=== PATIENT | female | born 1990 | race Caucasian/White ===

== ENCOUNTER 2016-05-15 17:49 | Emergency (ER) | payer OTHER ==
--- NOTE | 2016-05-15 22:39 | ED NURSING NOTES ---
Clinical Report - Nurses [facility] [place] [address] 05/15/2016 17:51 Patient: RAHEL PERRY TRIAGE Triage time 18:28. Acuity: LEVEL 3. Chief Complaint: LEFT LOWER EXTREMITY PAIN and SWELLING. Location of symptoms- (bruising). --18:34 Lia Guerra R.N. 18:28 05/15/16. BP: 109/74. HR: 82. RR: 18. O2 saturation: 99%. Temp: 99.4 F. Pain level now: 12/04. --18:34 Lia Guerra R.N. Weight: 65.7 kg stated. Height/Length: 66 inches Per Patient. BMI: 23.4. --18:33 Lia Guerra R.N. Medications None. --18:30 Lia Guerra R.N. Allergies No Known Drug Allergy. --18:30 Lia Guerra R.N. History Arrived by private vehicle. Primary physician (Josh Weller- Jason Arzate). ( left hip pain, now with low-grade fever). ( Pt. has history of hip dysplasia, has had 7 surgeries, the last 12/2015. For several weeks the left hip has been swollen, bruised (without injury) and becoming more painful. Surgeon advised she present to ED.). SURGERY HX: Left hip surgery. ( periacetabular osteotomy). SOCIAL HX: Smoker- current status unknown. Patient refuses to answer tobacco use questions (quit smoking 3 weeks ago.). No alcohol use or drug use. No infectious disease exposure. FALL RISK ASSESSMENT: Fall risk assessment completed. No fall risk identified. NUTRITIONAL RISK ASSESSMENT: The nutritional risk assessment revealed no deficiencies. FUNCTIONAL ASSESSMENT: Functional assessment: no impairments noted. LEARNING NEEDS ASSESSMENT: The learning needs assessment revealed no barriers. SKIN INTEGRITY ASSESSMENT: Skin integrity risk assessment completed. No skin integrity risk identified. --18:34 Lia Guerra R.N. PROBLEMS: Anemia. Hip dysplasia . --18:30 Lia Guerra R.N. ADDITIONAL SURGERIES: Left hip surgeries x 6 (periacetabular osteotomy). --18:31 Lia Guerra R.N. Interventions ID band on patient. To waiting room. --18:34 Lia Guerra R.N. PHYSICAL ASSESSMENT Ambulatory to room. --20:26 Katia Holder R.N. NURSING PROGRESS NOTES 20:15 05/15/16. The initial plan of care for this patient includes an assessment with efforts to address impairment of the musculoskeletal system. This plan of care was discussed with the patient. Reassurance given. Two patient identifiers checked. Call light placed in reach. Side rails up x 1. Bed placed in lowest position. Brakes of bed on. Patient ready for evaluation. --20:26 Katia Holder R.N. 21:32 05/15/16. GENERAL / NEURO / PSYCH: The patient reports pain that is located in the left hip. --21:32 Katia Holder R.N. 21:32 05/15/16. BP: 106/63. HR: 80. RR: 16. O2 saturation: 100%. Pain level now 8/10. --21:32 Katia Holder R.N. 21:44. Checked patient name and birthdate: patient confirmed. Blood samples drawn from the right antecubital space by tech per protocol ; labeled in presence of the patient and sent to lab: rainbow set. --21:54 McQuoid, Barbara, ER Tech1 21:55 05/15/2016 Percocet (Oxycodone-Acetaminophen) PO 5/325 mg Tablets 1 tab given. Allergies verified, confirmed 5 rights and sedative warning given to the patient. --21:55 Bren Lam R.N. DISPOSITION / DISCHARGE Departure time: 2244. --23:49 Tre Trinh R.N. 22:40 05/15/16. BP: 103/60. HR: 70. RR: 18. O2 saturation: 100%. Temp: 98.9 F. Pain level now: 3/10. Additional comments: Hip pain. --23:51 Tre Trinh R.N. 22:45. Condition at departure: improved. No learning barriers present. Discharge instructions provided and reviewed with the patient. Reviewed medication(s) (prescription given to pt). Reviewed referral to family practice for followup. Patient verbalized understanding. Written instructions provided in Slovak. The patient was discharged by the physician assistant director of public works. She was discharged home and accompanied by photoengraving sketch maker. She left the Emergency Department ambulatory and via private vehicle. Yarn Dumper driving. --23:53 Tre Trinh R.N. Locked/Released at 05/15/2016 23:55 by Tre Trinh R.N.
--- NOTE | 2016-05-15 22:39 | ED CLINICAL REPORT ---
Clinical Report - Physicians/Mid Levels [facility] [address] [place] [address] 05/15/2016 17:51 Patient: RAHEL PERRY Time Seen: 2029. Arrived- By private vehicle. Historian- patient. HISTORY OF PRESENT ILLNESS The patient also (hip pain). Chief Complaint: (HIP pain x 2 weeks). The injury occurred just prior to arrival. Occurred at home. (patient with chronic left hip pain, noninjury, increase ambulation recently, due to school. Reports out of her medications and additionally the last 2 weeks, has all with her surgeon within the next week. Patient denies any rash. Pain is consistent to what she has had in the past. Periacetabular ostomy, 7 surgeries, the last 12/2015). REVIEW OF SYSTEMS No headache or loss of vision. All systems otherwise negative, except as recorded above. PAST HISTORY Problems: Anemia. Hip dysplasia . Additional Surgeries: Hip Surgery. Left hip surgeries x 6 (periacetabular osteotomy). Medications: None. Allergies: No Known Drug Allergy. SOCIAL HISTORY No alcohol use or drug use. ADDITIONAL NOTES The nursing notes have been reviewed. PHYSICAL EXAM Vital Signs: 05/15/2016 18:28 BP: 109/74. HR: 82. RR: 18. O2 saturation: 99%. Temp: 99.4 F. Pain level now: 8/10. Appearance: No acute distress. Eyes: Pupils equal, round and reactive to light. EOM intact. ENT: No dental injury. CVS: Heart sounds normal. Pulses normal. Respiratory: Breath sounds normal. Chest nontender. No chest wall injury. Abdomen: No visible injury. Soft. Bowel sounds normal. No abdominal tenderness or rebound tenderness. Back: No tenderness. Skin: Skin intact. Skin warm. Extremities: Normal inspection. Pelvis stable. Left hip: mild tenderness located in the anterior and lateral aspect of the hip. (large incision from prior/ old, well healing, c/d/i). No abrasion, puncture wound or foreign body. No limitation in ROM. Left thigh. No erythema or swelling. Neuro: [place] Coma Scale: 15- eyes open spontaneously (4); best verbal response- oriented x 3 (5); best motor response- obeys commands (6). Oriented X 3. No motor deficit. No sensory deficit. LABS, X-RAYS, AND EKG Lt Hip X-ray: (IMPRESSION: 1. Chronic postsurgical changes of the left iliac wing and acetabulum 2. Mild left hip degenerative changes 3. Myositis ossificans Electronically Final signed by:Zane Robles MD 05/15/2016 11:06:22 PM). Laboratory Tests: CBC w Diff: (TOY: 05/15/2016 21:55) ( MsgRcvd 05/15/2016 22:40) Final results Test Result Flag Units (Reference) WHITE BLOOD COUNT 7.7 K/uL (4.5-11.5) RED BLOOD COUNT 4.14 M/uL (4.00-5.20) HEMOGLOBIN 9.7 L gm/dL (12.0-16.0) HEMATOCRIT 30.7 L % (36.0-46.0) MEAN CELL VOLUME 74 L fL (80-100) MEAN CORPUSCULAR HGB 23 L pg (26-34) MEAN CORPUSCULAR HGB CONC 32 g/dL (31-37) RED CELL DISTRIBUTION WIDTH 20.5 H % (11.6-14.8) PLATELET COUNT 250 K/uL (150-400) NEUTROPHIL % 49.3 L % (50-75) LYMPH % 39.5 % (25-40) MONO % 9.4 % (3-14) EOSINOPHIL % 1.4 % (0-4) BASOPHIL % 0.4 % (0-2) SED RATE WESTERGREN 25 H mm/hr (0-20) RBC MORPHOLOGY 1+ ANISOCYTOSIS~~1+ HYPOCHROMIA [id number]: (TOY: 05/15/2016 21:55) ( MsgRcvd 05/15/2016 22:35) Final results Test Result Flag Units (Reference) C-REACTIVE PROTEIN < 0.2 mg/dL (0.0-0.9) . PROGRESS AND PROCEDURES Course of Care: Patient here in the ear with chronic pain, no new symptoms, perhaps exacerbated by recent activity and movement. No fall. No rash overlying the area. Patient is stable. Patient/family counseled. Disposition: Discharged. Condition: good. CLINICAL IMPRESSION Chronic Hip Pain. INSTRUCTIONS You may walk and bear weight as tolerated. Prescription Medications: Hydrocodone/APAP 7.5mg / 325mg: take 1 orally every 6 hours as needed for pain. Dispense twenty (20). No refill. Follow-up: Follow up with your doctor in three days. (Electronically signed by Shira Martinez P.A.-C 05/16/2016 13:25)
--- NOTE | 2016-05-15 22:39 | ED NURSING NOTES ---
Clinical Report - Nurses [facility] [place] [address] 05/15/2016 17:51 Patient: RAHEL PERRY TRIAGE Triage time 18:28. Acuity: LEVEL 3. Chief Complaint: LEFT LOWER EXTREMITY PAIN and SWELLING. Location of symptoms- (bruising). --18:34 Lia Guerra R.N. 18:28 05/15/16. BP: 109/74. HR: 82. RR: 18. O2 saturation: 99%. Temp: 99.4 F. Pain level now: 12/04. --18:34 Lia Guerra R.N. Weight: 65.7 kg stated. Height/Length: 66 inches Per Patient. BMI: 23.4. --18:33 Lia Guerra R.N. Medications None. --18:30 Lia Guerra R.N. Allergies No Known Drug Allergy. --18:30 Lia Guerra R.N. History Arrived by private vehicle. Primary physician (Josh Weller- Jason Arzate). ( left hip pain, now with low-grade fever). ( Pt. has history of hip dysplasia, has had 7 surgeries, the last 12/2015. For several weeks the left hip has been swollen, bruised (without injury) and becoming more painful. Surgeon advised she present to ED.). SURGERY HX: Left hip surgery. ( periacetabular osteotomy). SOCIAL HX: Smoker- current status unknown. Patient refuses to answer tobacco use questions (quit smoking 3 weeks ago.). No alcohol use or drug use. No infectious disease exposure. FALL RISK ASSESSMENT: Fall risk assessment completed. No fall risk identified. NUTRITIONAL RISK ASSESSMENT: The nutritional risk assessment revealed no deficiencies. FUNCTIONAL ASSESSMENT: Functional assessment: no impairments noted. LEARNING NEEDS ASSESSMENT: The learning needs assessment revealed no barriers. SKIN INTEGRITY ASSESSMENT: Skin integrity risk assessment completed. No skin integrity risk identified. --18:34 Lia Guerra R.N. PROBLEMS: Anemia. Hip dysplasia . --18:30 Lia Guerra R.N. ADDITIONAL SURGERIES: Left hip surgeries x 6 (periacetabular osteotomy). --18:31 Lia Guerra R.N. Interventions ID band on patient. To waiting room. --18:34 Lia Guerra R.N. PHYSICAL ASSESSMENT Ambulatory to room. --20:26 Katia Holder R.N. NURSING PROGRESS NOTES 20:15 05/15/16. The initial plan of care for this patient includes an assessment with efforts to address impairment of the musculoskeletal system. This plan of care was discussed with the patient. Reassurance given. Two patient identifiers checked. Call light placed in reach. Side rails up x 1. Bed placed in lowest position. Brakes of bed on. Patient ready for evaluation. --20:26 Katia Holder R.N. 21:32 05/15/16. GENERAL / NEURO / PSYCH: The patient reports pain that is located in the left hip. --21:32 Katia Holder R.N. 21:32 05/15/16. BP: 106/63. HR: 80. RR: 16. O2 saturation: 100%. Pain level now 8/10. --21:32 Katia Holder R.N. 21:44. Checked patient name and birthdate: patient confirmed. Blood samples drawn from the right antecubital space by tech per protocol ; labeled in presence of the patient and sent to lab: rainbow set. --21:54 McQuoid, Barbara, ER Tech1 21:55 05/15/2016 Percocet (Oxycodone-Acetaminophen) PO 5/325 mg Tablets 1 tab given. Allergies verified, confirmed 5 rights and sedative warning given to the patient. --21:55 Bren Lam R.N. DISPOSITION / DISCHARGE Departure time: 2244. --23:49 Tre Trinh R.N. 22:40 05/15/16. BP: 103/60. HR: 70. RR: 18. O2 saturation: 100%. Temp: 98.9 F. Pain level now: 3/10. Additional comments: Hip pain. --23:51 Tre Trinh R.N. 22:45. Condition at departure: improved. No learning barriers present. Discharge instructions provided and reviewed with the patient. Reviewed medication(s) (prescription given to pt). Reviewed referral to family practice for followup. Patient verbalized understanding. Written instructions provided in Cymro. The patient was discharged by the physician assistant attorney general. She was discharged home and accompanied by equipment maint tech. She left the Emergency Department ambulatory and via private vehicle. Literacy Consultant driving. --23:53 Tre Trinh R.N. Locked/Released at 05/15/2016 23:55 by Tre Trinh R.N.
--- NOTE | 2016-05-15 22:39 | ED ORDER SUMMARY ---
..... Patient: RAHEL PERRY OrderSheet [facility] VisitID: [id number] [address] [place] [address] 25y, F Registration Date/Time: 05/15/2016 ORDER SHEET Weight: 65.7 kg (stated) Allergies: No Known Drug Allergy GENERAL ORDERS: Hip 2V Left w AP Pelvis Urgent (20:52 05/15/2016 EKoroleva P.A.-C) (Ack 20:55 LTapper) (21:11 MCampbell) CBC w Diff Urgent (20:52 05/15/2016 EKoroleva P.A.-C) (Ack 20:55 LTapper) (21:54 AMcQuoid ER Tech1) Sed Rate Urgent (20:52 05/15/2016 EKoroleva P.A.-C) (Ack 20:55 LTapper) (21:54 AMcQuoid ER Tech1) CRP Urgent (20:52 05/15/2016 EKoroleva P.A.-C) (Ack 20:55 LTapper) (21:54 AMcQuoid ER Tech1) MEDICATION ORDERS: Percocet PO 5/325 mg (HIGH ALERT MEDICATION, NOW) (21:46 05/15/2016 EKoroleva P.A.-C) (21:55 Chayo R.N.) IV FLUIDS: ORDER SHEET NOTES: [Electronically signed by Tre Trinh R.N. (23:55 05/15/2016)] [Electronically signed by Shira Martinez P.A.-C (13:25 05/16/2016)] [Electronically locked/signed by Tre Trinh R.N. (23:55 05/15/2016)]
--- NOTE | 2016-05-15 22:39 | ED ORDER SUMMARY ---
..... Patient: RAHEL PERRY OrderSheet [facility] VisitID: [id number] [address] [place] [address] 25y, F Registration Date/Time: 05/15/2016 ORDER SHEET Weight: 65.7 kg (stated) Allergies: No Known Drug Allergy GENERAL ORDERS: Hip 2V Left w AP Pelvis Urgent (20:52 05/15/2016 EKoroleva P.A.-C) (Ack 20:55 LTapper) (21:11 MCampbell) CBC w Diff Urgent (20:52 05/15/2016 EKoroleva P.A.-C) (Ack 20:55 LTapper) (21:54 AMcQuoid ER Tech1) Sed Rate Urgent (20:52 05/15/2016 EKoroleva P.A.-C) (Ack 20:55 LTapper) (21:54 AMcQuoid ER Tech1) CRP Urgent (20:52 05/15/2016 EKoroleva P.A.-C) (Ack 20:55 LTapper) (21:54 AMcQuoid ER Tech1) MEDICATION ORDERS: Percocet PO 5/325 mg (HIGH ALERT MEDICATION, NOW) (21:46 05/15/2016 EKoroleva P.A.-C) (21:55 Chayo R.N.) IV FLUIDS: ORDER SHEET NOTES: [Electronically signed by Tre Trinh R.N. (23:55 05/15/2016)] [Electronically signed by Shira Martinez P.A.-C (13:25 05/16/2016)] [Electronically locked/signed by Tre Trinh R.N. (23:55 05/15/2016)]
--- NOTE | 2016-05-15 22:39 | ED CLINICAL REPORT ---
Clinical Report - Physicians/Mid Levels [facility] [address] [place] [address] 05/15/2016 17:51 Patient: RAHEL PERRY Time Seen: 2029. Arrived- By private vehicle. Historian- patient. HISTORY OF PRESENT ILLNESS The patient also (hip pain). Chief Complaint: (HIP pain x 2 weeks). The injury occurred just prior to arrival. Occurred at home. (patient with chronic left hip pain, noninjury, increase ambulation recently, due to school. Reports out of her medications and additionally the last 2 weeks, has all with her surgeon within the next week. Patient denies any rash. Pain is consistent to what she has had in the past. Periacetabular ostomy, 7 surgeries, the last 12/2015). REVIEW OF SYSTEMS No headache or loss of vision. All systems otherwise negative, except as recorded above. PAST HISTORY Problems: Anemia. Hip dysplasia . Additional Surgeries: Hip Surgery. Left hip surgeries x 6 (periacetabular osteotomy). Medications: None. Allergies: No Known Drug Allergy. SOCIAL HISTORY No alcohol use or drug use. ADDITIONAL NOTES The nursing notes have been reviewed. PHYSICAL EXAM Vital Signs: 05/15/2016 18:28 BP: 109/74. HR: 82. RR: 18. O2 saturation: 99%. Temp: 99.4 F. Pain level now: 8/10. Appearance: No acute distress. Eyes: Pupils equal, round and reactive to light. EOM intact. ENT: No dental injury. CVS: Heart sounds normal. Pulses normal. Respiratory: Breath sounds normal. Chest nontender. No chest wall injury. Abdomen: No visible injury. Soft. Bowel sounds normal. No abdominal tenderness or rebound tenderness. Back: No tenderness. Skin: Skin intact. Skin warm. Extremities: Normal inspection. Pelvis stable. Left hip: mild tenderness located in the anterior and lateral aspect of the hip. (large incision from prior/ old, well healing, c/d/i). No abrasion, puncture wound or foreign body. No limitation in ROM. Left thigh. No erythema or swelling. Neuro: [place] Coma Scale: 15- eyes open spontaneously (4); best verbal response- oriented x 3 (5); best motor response- obeys commands (6). Oriented X 3. No motor deficit. No sensory deficit. LABS, X-RAYS, AND EKG Lt Hip X-ray: (IMPRESSION: 1. Chronic postsurgical changes of the left iliac wing and acetabulum 2. Mild left hip degenerative changes 3. Myositis ossificans Electronically Final signed by:Zane Robles MD 05/15/2016 11:06:22 PM). Laboratory Tests: CBC w Diff: (TOY: 05/15/2016 21:55) ( MsgRcvd 05/15/2016 22:40) Final results Test Result Flag Units (Reference) WHITE BLOOD COUNT 7.7 K/uL (4.5-11.5) RED BLOOD COUNT 4.14 M/uL (4.00-5.20) HEMOGLOBIN 9.7 L gm/dL (12.0-16.0) HEMATOCRIT 30.7 L % (36.0-46.0) MEAN CELL VOLUME 74 L fL (80-100) MEAN CORPUSCULAR HGB 23 L pg (26-34) MEAN CORPUSCULAR HGB CONC 32 g/dL (31-37) RED CELL DISTRIBUTION WIDTH 20.5 H % (11.6-14.8) PLATELET COUNT 250 K/uL (150-400) NEUTROPHIL % 49.3 L % (50-75) LYMPH % 39.5 % (25-40) MONO % 9.4 % (3-14) EOSINOPHIL % 1.4 % (0-4) BASOPHIL % 0.4 % (0-2) SED RATE WESTERGREN 25 H mm/hr (0-20) RBC MORPHOLOGY 1+ ANISOCYTOSIS~~1+ HYPOCHROMIA [id number]: (TOY: 05/15/2016 21:55) ( MsgRcvd 05/15/2016 22:35) Final results Test Result Flag Units (Reference) C-REACTIVE PROTEIN < 0.2 mg/dL (0.0-0.9) . PROGRESS AND PROCEDURES Course of Care: Patient here in the ear with chronic pain, no new symptoms, perhaps exacerbated by recent activity and movement. No fall. No rash overlying the area. Patient is stable. Patient/family counseled. Disposition: Discharged. Condition: good. CLINICAL IMPRESSION Chronic Hip Pain. INSTRUCTIONS You may walk and bear weight as tolerated. Prescription Medications: Hydrocodone/APAP 7.5mg / 325mg: take 1 orally every 6 hours as needed for pain. Dispense twenty (20). No refill. Follow-up: Follow up with your doctor in three days. (Electronically signed by Shira Martinez P.A.-C 05/16/2016 13:25)
--- NOTE | 2016-05-15 23:06 | DIAGNOSTIC IMAGING REPORT ---
PROCEDURE: XR HIP 2VW W W/O AP PELVIS-LT INDICATION: PAIN IN JOINT, initial encounter TECHNIQUE: AP view of the pelvis and hips with lateral view of the left hip. COMPARISON: None. FINDINGS: LEFT HIP: Mild degenerative changes. No fracture or dislocation. PELVIS: Healed iliac transverse osteotomy. Single screw projecting over the left acetabulum and joint space laterally. . Soft tissue calcification adjacent to the femoral neck and left iliac wing suggestive of myositis ossificans. IMPRESSION: 1. Chronic postsurgical changes of the left iliac wing and acetabulum 2. Mild left hip degenerative changes 3. Myositis ossificans
--- NOTE | 2016-05-16 13:26 | ED MED RECONCILIATION SUMMARY ---
Patient: RAHEL PERRY Medication Reconciliation Report [facility] VisitID: [id number] [address] [place] [address] 25y, F Registration Date/Time: 05/15/2016 Weight: 65.7 kg Height/Length: 66 in. BMI: 23.4 ALLERGIES: No Known Drug Allergy The patient's Home Medications are listed below: NONE. The source(s) of the original Home Medication information: Not obtained. The following Medications were given to the patient in the Emergency Department: Percocet [PO] PO 1 tab, administered: 05/15/2016 9:55:00 PM The following Medications were prescribed to the patient: Hydrocodone/APAP 7.5mg / 325mg: take 1 orally every 6 hours as needed for pain. Dispense twenty (20). No refill. -- Shira Martinez, PChandanaAAramC
--- NOTE | 2016-05-16 13:26 | ED DISCHARGE INSTRUCTIONS ---
Patient: RAHEL PERRY General Instructions [facility] VisitID: [id number] [place] [address] 25y, F Registration Date/Time: 05/15/2016 Chronic Hip Pain. INSTRUCTIONS You may walk and bear weight as tolerated. Prescription Medications: Hydrocodone/APAP 7.5mg / 325mg: take 1 orally every 6 hours as needed for pain. Dispense twenty (20). No refill. Follow-up: Follow up with your doctor in three days. ADDITIONAL INFORMATION Hydrocodone Bitartrate, Acetaminophen Oral tablet What is this medicine? ACETAMINOPHEN; HYDROCODONE (a set a FUNMILAYO carine fen; gamal droe KOE done) is a pain reliever. It is used to treat mild to moderate pain. How should I use this medicine? Take this medicine by mouth. Swallow it with a full glass of water. Follow the directions on the prescription label. If the medicine upsets your stomach, take the medicine with food or milk. Do not take more than you are told to take. Talk to your costume technician regarding the use of this medicine in children. This medicine is not approved for use in children. What side effects may I notice from receiving this medicine? Side effects that you should report to your doctor or health acute care nurse as soon as possible: allergic reactions like skin rash, itching or hives, swelling of the face, lips, or tongue breathing problems confusion feeling faint or lightheaded, falls stomach pain yellowing of the eyes or skin Side effects that usually do not require medical attention (report to your doctor or health acute care nurse if they continue or are bothersome): nausea, vomiting stomach upset What may interact with this medicine? alcohol antihistamines isoniazid medicines for depression, anxiety, or psychotic disturbances medicines for sleep muscle relaxants naltrexone narcotic medicines (opiates) for pain phenobarbital ritonavir tramadol What if I miss a dose? If you miss a dose, take it as soon as you can. If it is almost time for your next dose, take only that dose. Do not take double or extra doses. Where should I keep my medicine? Keep out of the reach of children. This medicine can be abused. Keep your medicine in a safe place to protect it from theft. Do not share this medicine with anyone. Selling or giving away this medicine is dangerous and against the law. Store at room temperature between 15 and 30 degrees C (59 and 86 degrees F). Protect from light. Keep container tightly closed. Throw away any unused medicine after the expiration date. Discard unused medicine and used packaging carefully. Pets and children can be harmed if they find used or lost packages. What should I tell my health care provider before I take this medicine? They need to know if you have any of these conditions: brain tumor Crohn's disease, inflammatory bowel disease, or ulcerative colitis drink more than 3 alcohol-containing drinks per day drug abuse or addiction head injury heart or circulation problems kidney disease or problems going to the bathroom liver disease lung disease, asthma, or breathing problems an unusual or allergic reaction to acetaminophen, hydrocodone, other opioid analgesics, other medicines, foods, dyes, or preservatives or trying to get breast-feeding What should I watch for while using this medicine? Tell your doctor or health acute care nurse if your pain does not go away, if it gets worse, or if you have new or a different type of pain. You may develop tolerance to the medicine. Tolerance means that you will need a higher dose of the medicine for pain relief. Tolerance is normal and is expected if you take the medicine for a long time. Do not suddenly stop taking your medicine because you may develop a severe reaction. Your body becomes used to the medicine. This does NOT mean you are addicted. Addiction is a behavior related to getting and using a drug for a non-medical reason. If you have pain, you have a medical reason to take pain medicine. Your doctor will tell you how much medicine to take. If your doctor wants you to stop the medicine, the dose will be slowly lowered over time to avoid any side effects. You may get drowsy or dizzy when you first start taking the medicine or change doses. Do not drive, use machinery, or do anything that may be dangerous until you know how the medicine affects you. Stand or sit up slowly. There are different types of narcotic medicines (opiates) for pain. If you take more than one type at the same time, you may have more side effects. Give your health care provider a list of all medicines you use. Your doctor will tell you how much medicine to take. Do not take more medicine than directed. Call emergency for help if you have problems breathing. The medicine will cause constipation. Try to have a bowel movement at least every 2 to 3 days. If you do not have a bowel movement for 3 days, call your doctor or health acute care nurse. Too much acetaminophen can be very dangerous. Do not take Tylenol (acetaminophen) or medicines that contain acetaminophen with this medicine. Many non-prescription medicines contain acetaminophen. Always read the labels carefully. You have been given the following additional information: Hydrocodone Bitartrate, Acetaminophen Oral tablet You may walk and bear weight as tolerated. (Electronically signed by Shira Martinez P.A.-C 05/16/2016 13:25)
--- NOTE | 2016-05-16 13:26 | ED MED RECONCILIATION SUMMARY ---
Patient: RAHEL PERRY Medication Reconciliation Report [facility] VisitID: [id number] [address] [place] [address] 25y, F Registration Date/Time: 05/15/2016 Weight: 65.7 kg Height/Length: 66 in. BMI: 23.4 ALLERGIES: No Known Drug Allergy The patient's Home Medications are listed below: NONE. The source(s) of the original Home Medication information: Not obtained. The following Medications were given to the patient in the Emergency Department: Percocet [PO] PO 1 tab, administered: 05/15/2016 9:55:00 PM The following Medications were prescribed to the patient: Hydrocodone/APAP 7.5mg / 325mg: take 1 orally every 6 hours as needed for pain. Dispense twenty (20). No refill. -- Shira Martinez, PChandanaAAramC
--- NOTE | 2016-05-16 13:26 | ED DISCHARGE INSTRUCTIONS ---
Patient: RAHEL PERRY General Instructions [facility] VisitID: [id number] [place] [address] 25y, F Registration Date/Time: 05/15/2016 Chronic Hip Pain. INSTRUCTIONS You may walk and bear weight as tolerated. Prescription Medications: Hydrocodone/APAP 7.5mg / 325mg: take 1 orally every 6 hours as needed for pain. Dispense twenty (20). No refill. Follow-up: Follow up with your doctor in three days. ADDITIONAL INFORMATION Hydrocodone Bitartrate, Acetaminophen Oral tablet What is this medicine? ACETAMINOPHEN; HYDROCODONE (a set a FUNMILAYO carine fen; gamal droe KOE done) is a pain reliever. It is used to treat mild to moderate pain. How should I use this medicine? Take this medicine by mouth. Swallow it with a full glass of water. Follow the directions on the prescription label. If the medicine upsets your stomach, take the medicine with food or milk. Do not take more than you are told to take. Talk to your embroidery machine operator regarding the use of this medicine in children. This medicine is not approved for use in children. What side effects may I notice from receiving this medicine? Side effects that you should report to your doctor or health care asst as soon as possible: allergic reactions like skin rash, itching or hives, swelling of the face, lips, or tongue breathing problems confusion feeling faint or lightheaded, falls stomach pain yellowing of the eyes or skin Side effects that usually do not require medical attention (report to your doctor or health care asst if they continue or are bothersome): nausea, vomiting stomach upset What may interact with this medicine? alcohol antihistamines isoniazid medicines for depression, anxiety, or psychotic disturbances medicines for sleep muscle relaxants naltrexone narcotic medicines (opiates) for pain phenobarbital ritonavir tramadol What if I miss a dose? If you miss a dose, take it as soon as you can. If it is almost time for your next dose, take only that dose. Do not take double or extra doses. Where should I keep my medicine? Keep out of the reach of children. This medicine can be abused. Keep your medicine in a safe place to protect it from theft. Do not share this medicine with anyone. Selling or giving away this medicine is dangerous and against the law. Store at room temperature between 15 and 30 degrees C (59 and 86 degrees F). Protect from light. Keep container tightly closed. Throw away any unused medicine after the expiration date. Discard unused medicine and used packaging carefully. Pets and children can be harmed if they find used or lost packages. What should I tell my health care provider before I take this medicine? They need to know if you have any of these conditions: brain tumor Crohn's disease, inflammatory bowel disease, or ulcerative colitis drink more than 3 alcohol-containing drinks per day drug abuse or addiction head injury heart or circulation problems kidney disease or problems going to the bathroom liver disease lung disease, asthma, or breathing problems an unusual or allergic reaction to acetaminophen, hydrocodone, other opioid analgesics, other medicines, foods, dyes, or preservatives or trying to get breast-feeding What should I watch for while using this medicine? Tell your doctor or health care asst if your pain does not go away, if it gets worse, or if you have new or a different type of pain. You may develop tolerance to the medicine. Tolerance means that you will need a higher dose of the medicine for pain relief. Tolerance is normal and is expected if you take the medicine for a long time. Do not suddenly stop taking your medicine because you may develop a severe reaction. Your body becomes used to the medicine. This does NOT mean you are addicted. Addiction is a behavior related to getting and using a drug for a non-medical reason. If you have pain, you have a medical reason to take pain medicine. Your doctor will tell you how much medicine to take. If your doctor wants you to stop the medicine, the dose will be slowly lowered over time to avoid any side effects. You may get drowsy or dizzy when you first start taking the medicine or change doses. Do not drive, use machinery, or do anything that may be dangerous until you know how the medicine affects you. Stand or sit up slowly. There are different types of narcotic medicines (opiates) for pain. If you take more than one type at the same time, you may have more side effects. Give your health care provider a list of all medicines you use. Your doctor will tell you how much medicine to take. Do not take more medicine than directed. Call emergency for help if you have problems breathing. The medicine will cause constipation. Try to have a bowel movement at least every 2 to 3 days. If you do not have a bowel movement for 3 days, call your doctor or health care asst. Too much acetaminophen can be very dangerous. Do not take Tylenol (acetaminophen) or medicines that contain acetaminophen with this medicine. Many non-prescription medicines contain acetaminophen. Always read the labels carefully. You have been given the following additional information: Hydrocodone Bitartrate, Acetaminophen Oral tablet You may walk and bear weight as tolerated. (Electronically signed by Shira Martinez P.A.-C 05/16/2016 13:25)
--- NOTE | 2016-05-16 13:26 | ED MAR SUMMARY ---
..... Medication Administration Record [facility] [address] [place] [address] Patient: RAHEL PERRY Visit ID: [id number] 25y, F Weight: 65.7 kg Height/Length: 66 in BMI: 23.4 ALLERGIES: No Known Drug Allergy Given 21:55 05/15/2016 Bren Lam RChandanaNChandana Medication Administered: PERCOCET [PO] (OXYCODONE-ACETAMINOPHEN), Dose: 1 tab 5/325 mg Tablets PO. Medication Ordered: Percocet PO 5/325 mg (HIGH ALERT MEDICATION, NOW).
--- NOTE | 2016-05-16 13:26 | ED MAR SUMMARY ---
..... Medication Administration Record [facility] [address] [place] [address] Patient: RAHEL PERRY Visit ID: [id number] 25y, F Weight: 65.7 kg Height/Length: 66 in BMI: 23.4 ALLERGIES: No Known Drug Allergy Given 21:55 05/15/2016 Bren Lam RChandanaNChandana Medication Administered: PERCOCET [PO] (OXYCODONE-ACETAMINOPHEN), Dose: 1 tab 5/325 mg Tablets PO. Medication Ordered: Percocet PO 5/325 mg (HIGH ALERT MEDICATION, NOW).
== END 2016-05-15 22:45 | disposition home or self-care (01) ==
LOC: ED SRH 17:49
DX: M25.552 Pain in left hip (principal); G89.29 Other chronic pain; Z98.890 Other specified postprocedural states

== ENCOUNTER 2016-06-23 09:37 | Emergency (ER) | payer OTHER ==
--- NOTE | 2016-06-23 10:43 | ED ORDER SUMMARY ---
..... Patient: RAHEL PERRY OrderSheet Merged With [facility] VisitID: [id number] [address] [place] [address] 26y, F Registration Date/Time: 06/23/2016 ORDER SHEET Weight: 63.5 kg (stated) Allergies: No Known Drug Allergy GENERAL ORDERS: POC - Urine hCG (09:55 06/23/2016 Jocelyn PALACIOS) (Ack 9:56 MWinterer R.N.) (10:21 MWinterer R.N.) MEDICATION ORDERS: IV FLUIDS: ORDER SHEET NOTES: [Electronically signed by Christine Kirby R.N. (13:34 06/23/2016)] [Electronically signed by Anshul Coreas MD (15:34 06/23/2016)] [Electronically locked/signed by Christine Kirby R.N. (13:34 06/23/2016)]
--- NOTE | 2016-06-23 10:43 | ED NURSING NOTES ---
Clinical Report - Nurses [facility] [place] [address] 06/23/2016 9:38 Patient: RAHEL PERRY TRIAGE Acuity: LEVEL 4. Chief Complaint: BACK PAIN. Alert. No acute distress. --09:55 Christine Kirby R.N. 09:48 06/23/16. HR: 89. RR: 16. O2 saturation: 100%. Temp: 98.6 F. Pain level now: 12/04. --09:55 Christine Kirby R.N. Weight: 63.5 kg stated. Height/Length: 66 inches Per Patient. BMI: 22.6. --09:53 Christien Kirby R.N. Medications OxyCODONE HCl Oral 5 mg, as needed. --09:52 Christine Kirby R.N. Medication/allergy information source: the patient. --09:55 Christine Kirby R.N. Allergies No Known Drug Allergy. --09:52 Christine Kirby R.N. History Arrived by private vehicle. Historian: patient. Accompanied by friend. Primary physician (Whit). Onset. (2 weeks ago). ( Pt reports right side weakness and back pain ongoing for 2 weeks. She states she has seen her Dr and had an MRI on Jun 12, 2016. She states she has herniated discs in her lower back. She presents to ED reporting increasing pain and weakness..). PAST MEDICAL HX: Last normal menstrual period now. SOCIAL HX: Current every day light tobacco smoker- less than 1/2 a pack per day. No alcohol use or drug use. FALL RISK ASSESSMENT: Fall risk assessment completed. No fall risk identified. NUTRITIONAL RISK ASSESSMENT: The nutritional risk assessment revealed no deficiencies. FUNCTIONAL ASSESSMENT: Functional assessment: no impairments noted. LEARNING NEEDS ASSESSMENT: The learning needs assessment revealed no barriers. SKIN INTEGRITY ASSESSMENT: Skin integrity risk assessment completed. No skin integrity risk identified. --09:55 Christine Kirby R.N. PROBLEMS: Anemia. Hip dysplasia . --09:53 Christine Kirby R.N. ADDITIONAL SURGERIES: Hip Surgery. Left hip surgeries x 6 (periacetabular osteotomy). --09:53 Christine Kirby R.N. Assessment GENERAL / NEURO / PSYCH: Alert. Oriented X 4. Appears in no acute distress. Patient appears calm and cooperative. RESPIRATORY: Respirations not labored. Chest nontender. Breath sounds within normal limits. CVS: Capillary refill less than 2 seconds. GI / : Abdomen soft and nontender. SKIN: Mucous membranes are pink. Skin is warm and dry. --:55 Christine Kirby R.N. Interventions ID band on patient. To treatment room. --:55 Christine Kirby R.N. NURSING PROGRESS NOTES :06/23/16. Patient gowned. Two patient identifiers checked. Call light placed in reach. Side rails up x 1. Patient ready for evaluation- chart flagged and ED physician notified. --: Christine Kirby R.N. 10:21 06/23/16. Urine test negative. company controller check passed. double verified with LYNDA Flores. --10:21 Rhianna Hinojosa R.N. DISPOSITION / DISCHARGE Departure time: 11:00 Jun 23 2016. Condition at departure: unchanged and stable. No learning barriers present. Discharge instructions provided and reviewed with the patient. Reviewed medication(s) side effects, precautions and dosing information. Prescription(s) given to the patient. Patient verbalized understanding. Written instructions provided in Austrian. The patient was discharged by the physician. She was discharged home. She left the Emergency Department ambulatory and via private vehicle. Patient driving. --13:33 Christine Kirby R.N. Locked/Released at 06/23/2016 13:34 by Christine Kirby R.N.
--- NOTE | 2016-06-23 10:43 | ED NURSING NOTES ---
Clinical Report - Nurses [facility] [place] [address] 06/23/2016 9:38 Patient: RAHEL PERRY TRIAGE Acuity: LEVEL 4. Chief Complaint: BACK PAIN. Alert. No acute distress. --09:55 Christine Kirby R.N. 09:48 06/23/16. HR: 89. RR: 16. O2 saturation: 100%. Temp: 98.6 F. Pain level now: 12/04. --09:55 Christine Kirby R.N. Weight: 63.5 kg stated. Height/Length: 66 inches Per Patient. BMI: 22.6. --09:53 Christine Kirby R.N. Medications OxyCODONE HCl Oral 5 mg, as needed. --09:52 Christine Kirby R.N. Medication/allergy information source: the patient. --09:55 Christine Kirby R.N. Allergies No Known Drug Allergy. --09:52 Christine Kirby R.N. History Arrived by private vehicle. Historian: patient. Accompanied by friend. Primary physician (Whit). Onset. (2 weeks ago). ( Pt reports right side weakness and back pain ongoing for 2 weeks. She states she has seen her Dr and had an MRI on Jun 12, 2016. She states she has herniated discs in her lower back. She presents to ED reporting increasing pain and weakness..). PAST MEDICAL HX: Last normal menstrual period now. SOCIAL HX: Current every day light tobacco smoker- less than 1/2 a pack per day. No alcohol use or drug use. FALL RISK ASSESSMENT: Fall risk assessment completed. No fall risk identified. NUTRITIONAL RISK ASSESSMENT: The nutritional risk assessment revealed no deficiencies. FUNCTIONAL ASSESSMENT: Functional assessment: no impairments noted. LEARNING NEEDS ASSESSMENT: The learning needs assessment revealed no barriers. SKIN INTEGRITY ASSESSMENT: Skin integrity risk assessment completed. No skin integrity risk identified. --09:55 Christine Kirby R.N. PROBLEMS: Anemia. Hip dysplasia . --09:53 Christine Kirby R.N. ADDITIONAL SURGERIES: Hip Surgery. Left hip surgeries x 6 (periacetabular osteotomy). --09:53 Christine Kirby R.N. Assessment GENERAL / NEURO / PSYCH: Alert. Oriented X 4. Appears in no acute distress. Patient appears calm and cooperative. RESPIRATORY: Respirations not labored. Chest nontender. Breath sounds within normal limits. CVS: Capillary refill less than 2 seconds. GI / : Abdomen soft and nontender. SKIN: Mucous membranes are pink. Skin is warm and dry. --:55 Christine Kirby R.N. Interventions ID band on patient. To treatment room. --:55 Christine Kirby R.N. NURSING PROGRESS NOTES :06/23/16. Patient gowned. Two patient identifiers checked. Call light placed in reach. Side rails up x 1. Patient ready for evaluation- chart flagged and ED physician notified. --: Christine Kirby R.N. 10:21 06/23/16. Urine test negative. steam plant control room operator check passed. double verified with LYNDA Flores. --10:21 Rhianna Hinojosa R.N. DISPOSITION / DISCHARGE Departure time: 11:00 Jun 23 2016. Condition at departure: unchanged and stable. No learning barriers present. Discharge instructions provided and reviewed with the patient. Reviewed medication(s) side effects, precautions and dosing information. Prescription(s) given to the patient. Patient verbalized understanding. Written instructions provided in Nigerian. The patient was discharged by the physician. She was discharged home. She left the Emergency Department ambulatory and via private vehicle. Patient driving. --13:33 Christine Kirby R.N. Locked/Released at 06/23/2016 13:34 by Christine Kirby R.N.
--- NOTE | 2016-06-23 10:43 | ED CLINICAL REPORT ---
Clinical Report - Physicians/Mid Levels [facility] [address] [place] [address] 06/23/2016 9:38 Patient: RAHEL PERRY Time Seen: 09:55. Arrived- By private vehicle. Historian- patient. HISTORY OF PRESENT ILLNESS Chief Complaint: CHRONIC BACK PAIN. It is described as being severe and radiating to the left hip and thigh. The quality is noted to be aching, "pain" and similar to prior episodes. Onset- several months ago and it is still present. It was gradual in onset and has been constant and waxing/waning. No bladder dysfunction or bowel dysfunction. Patient denies an injury. Similar symptoms previously: Chronically. Recent medical care: The patient was seen recently at another facility in a clinic. ( The patient is being followed by Dr. Natan Jorgensen at [facility]. She underwent an MRI of the lumbar spine on 12 June 2016 which revealed small to moderate-sized posterior central disc extrusion at L5-S1, which is slightly increased in size since the previous study. The disc extrusion mildly abuts the S1 nerves. No stenosis. Minimal disc bulge at L4-L5 mild facet arthropathy no stenosis no change. New tiny focus of type I degenerative endplate changes at L5 inferior endplate.). REVIEW OF SYSTEMS No chills, fever, sweats, calf pain or chest pain. No cough, difficulty breathing, pedal edema, palpitations or abdominal pain. No constipation, diarrhea, nausea, vomiting or urinary problems. All systems otherwise negative, except as recorded above. PAST HISTORY Spine Doctor - Jameel Gama MD. SOCIAL HISTORY Current every day light tobacco smoker (cigarette)- less than 1/2 a pack per day. No alcohol use or drug use. FAMILY HISTORY No significant family medical history. ADDITIONAL NOTES The nursing notes have been reviewed. PHYSICAL EXAM Vital Signs: 06/23/2016 09:48 HR: 89. RR: 16. O2 saturation: 100%. Temp: 98.6 F. Pain level now: 8/10. Have been reviewed. Appearance: Alert. Eyes: Pupils equal, round and reactive to light. ENT: Pharynx normal. Neck: Normal inspection. Neck nontender. Painless ROM. CVS: Heart sounds normal. Respiratory: No respiratory distress. Breath sounds normal. Abdomen: No visible injury. Soft and nontender. Bowel sounds normal. No organomegaly. No mass. Back: Soft tissue tenderness. Moderately limited ROM in the back- in the lumbar spine: decreased flexion, extension, right lateral bending, left lateral bending and rotation to the right and left. No vertebral point tenderness. Skin: Skin warm and dry. Normal skin color. No rash. Normal skin turgor. Extremities: Extremities exhibit normal ROM. No calf tenderness. PROGRESS AND PROCEDURES Course of Care: Patient is stable. Patient/family counseled. Old medical records reviewed. Disposition: Discharged. Condition: stable. CLINICAL IMPRESSION Back pain. INSTRUCTIONS No driving or operating machinery while taking medication. No lifting greater than 5 lbs, no bending or stooping or no prolonged sitting. Warnings: GENERAL WARNINGS: Return or contact your physician immediately if your condition worsens or changes unexpectedly, if not improving as expected, or if other problems arise. Prescription Medications: Ultram 50 mg: take 1-2 orally every 6 hours as needed for pain. Dispense fifteen (15). No refills. Substitution is permissible. OTC Medications: Motrin (available over the counter): take according to label instructions. Follow-up: Follow up with your doctor Natan Jorgensen MD as scheduled. Understanding of the discharge instructions verbalized by patient. (Electronically signed by Anshul Coreas MD 06/23/2016 15:34)
--- NOTE | 2016-06-23 10:43 | ED ORDER SUMMARY ---
..... Patient: RAHEL PERRY OrderSheet [facility] VisitID: [id number] [address] [place] [address] 26y, F Registration Date/Time: 06/23/2016 ORDER SHEET Weight: 63.5 kg (stated) Allergies: No Known Drug Allergy GENERAL ORDERS: POC - Urine hCG (09:55 06/23/2016 Jocelyn PALACIOS) (Ack 9:56 MWinterer R.N.) (10:21 MWinterer R.N.) MEDICATION ORDERS: IV FLUIDS: ORDER SHEET NOTES: [Electronically signed by Christine Kirby R.N. (13:34 06/23/2016)] [Electronically signed by Anshul Coreas MD (15:34 06/23/2016)] [Electronically locked/signed by Christine Kirby R.N. (13:34 06/23/2016)]
--- NOTE | 2016-06-23 15:34 | ED MAR SUMMARY ---
..... Medication Administration Record [facility] [address] [place], [place] [id number] Patient: RAHEL PERRY Visit ID: [id number] 26y, F Weight: 63.5 kg Height/Length: 66 in BMI: 22.6 ALLERGIES: No Known Drug Allergy
--- NOTE | 2016-06-23 15:34 | ED DISCHARGE INSTRUCTIONS ---
Patient: RAHEL PERRY General Instructions [facility] VisitID: [id number] [place] [address] 26y, F Registration Date/Time: 06/23/2016 Back pain. INSTRUCTIONS No driving or operating machinery while taking medication. No lifting greater than 5 lbs, no bending or stooping or no prolonged sitting. Warnings: GENERAL WARNINGS: Return or contact your physician immediately if your condition worsens or changes unexpectedly, if not improving as expected, or if other problems arise. Prescription Medications: Ultram 50 mg: take 1-2 orally every 6 hours as needed for pain. Dispense fifteen (15). No refills. Substitution is permissible. OTC Medications: Motrin (available over the counter): take according to label instructions. Follow-up: Follow up with your doctor Natan Jorgensen MD as scheduled. Understanding of the discharge instructions verbalized by patient. ADDITIONAL INFORMATION Back Pain [Acute Or Chronic] Back pain is usually caused by an injury to the muscles or ligaments of the spine. Sometimes the disks that separate each bone in the spine may bulge and cause pain by pressing on a nearby nerve. Back pain may also appear after a sudden twisting/bending force (such as in a car accident), after a simple awkward movement, or lifting something heavy with poor body positioning. In either case, muscle spasm is often present and adds to the pain. Acute back pain usually gets better in one to two weeks. Back pain related to disk disease, arthritis in the spinal joints or spinal stenosis (narrowing of the spinal canal) can become chronic and last for months or years. Unless you had a physical injury (for example, a car accident or fall) X-rays are usually not ordered for the initial evaluation of back pain. If pain continues and does not respond to medical treatment, x-rays and other tests may be performed at a later time. Home Care: You may need to stay in bed the first few days. But, as soon as possible, begin sitting or walking to avoid problems with prolonged bed rest (muscle weakness, worsening back stiffness and pain, blood clots in the legs). When in bed, try to find a position of comfort. A firm mattress is best. Try lying flat on your back with pillows under your knees. You can also try lying on your side with your knees bent up towards your chest and a pillow between your knees. Avoid prolonged sitting. This puts more stress on the lower back than standing or walking. During the first two days after injury, apply an ICE PACK to the painful area for 20 minutes every 2-4 hours. This will reduce swelling and pain. HEAT (hot shower, hot bath or heating pad) works well for muscle spasm. You can start with ice, then switch to heat after two days. Some patients feel best alternating ice and heat treatments. Use the one method that feels the best to you. You may use acetaminophen (Tylenol) or ibuprofen (Motrin, Advil) to control pain, unless another pain medicine was prescribed. [NOTE: If you have chronic liver or kidney disease or ever had a stomach ulcer or GI bleeding, talk with your doctor before using these medicines.] Be aware of safe lifting methods and do not lift anything over 15 pounds until all the pain is gone. Follow Up with your doctor or this facility if your symptoms do not start to improve after one week. Physical therapy may be needed. [NOTE: If X-rays were taken, they will be reviewed by a radiologist. You will be notified of any new findings that may affect your care.] Get Prompt Medical Attention if any of the following occur: Pain becomes worse or spreads to your legs Weakness or numbness in one or both legs Loss of bowel or bladder control Numbness in the groin or genital area Sciatica Sciatica ("Lumbar Radiculopathy") causes a pain that spreads from the lower back down into the buttock, hip and leg. Sometimes leg pain can occur without any back pain. Sciatica is due to irritation or pressure on a spinal nerve as it comes out of the spinal canal. This is most often due to a bulge or rupture of a nearby spinal disk (the cartilage cushion between each spinal bone), which presses on a nearby nerve. Other causes include spinal stenosis (narrowing of the spinal canal) and spasm of the pyriform muscle (a muscle in the buttocks that the sciatic nerve passes through). Sciatica may begin after a sudden twisting/bending force (such as in a car accident), or sometimes after a simple awkward movement. In either case, muscle spasm is commonly present and contributes to the pain. The diagnosis of sciatica is made from the symptoms and physical exam. Unless you had a physical injury (such as a car accident or fall), X-rays are usually not ordered for the initial evaluation of sciatica because the nerves and disks cannot be seen on an x-ray. If signs of a compressed nerve are present (for example, loss of tendon reflex or strength in the leg), an MRI (magnetic resonance imaging) scan will need to be scheduled as an outpatient. Most sciatica (80-90%) gets better with medicine, exercise, physical therapy. If symptoms continue after at least three months of medical treatment, surgery may be considered. Home Care: You may need to stay in bed the first few days. But, as soon as possible, begin sitting or walking to avoid problems with prolonged bed rest. When in bed, try to find a position of comfort. A firm mattress is best. Try lying flat on your back with pillows under your knees. You can also try lying on your side with your knees bent up towards your chest and a pillow between your knees. Avoid prolonged sitting. This puts more stress on the lower back than standing or walking. Some persons find relief with heat (hot shower, hot bath or heating pad) and massage, while others prefer cold packs (crushed or cubed ice in a plastic bag, wrapped in a towel). Try both and use the method that feels best for 20 minutes several times a day. You may use acetaminophen (Tylenol) or ibuprofen (Motrin, Advil) to control pain, unless another pain medicine was prescribed. [ NOTE: If you have chronic liver or kidney disease or ever had a stomach ulcer or GI bleeding, talk with your doctor before using these medicines.] Be aware of safe lifting methods and do not lift anything over 15 pounds until all the pain is gone. Follow Up with your doctor or this facility if your symptoms do not start to improve after one week. Physical therapy or further testing may be needed. [NOTE: If X-rays were taken, they will be reviewed by a radiologist. You will be notified of any new findings that may affect your care.] Get Prompt Medical Attention if any of the following occur: Pain becomes worse, not controlled by the prescribed medicine Weakness or numbness in one or both legs Numbness in the groin, genital area Loss of bowel or bladder control Degenerative Disk Disease Spinal disks are gel-filled cushions between the bones of the spine (vertebrae). The disks act like shock absorbers. Over time, the disks may break down. This disorder is called degenerative disk disease (DDD). DDD can affect the neck or back. It is one of the most common causes of low back pain. It is the leading cause of disability in people under age 45 in the [place]. The pain usually remains localized to the lower back or neck. Muscle spasm is often present and adds to the pain. Disk degeneration is a natural part of aging, although it does not cause pain in most persons. It may also occur as a result of repeated minor injuries due to daily activities, sports, or accidents. It may lead to osteoarthritis of the spine. Back pain related to disk disease may come and go or become chronic and last for months or years. If the disk bulges or ruptures (also called slipped disk or herniated disk), it can put pressure on a nearby spinal nerve and cause neck or back pain that spreads down one arm or leg. X-rays or MRI (magnetic resonance imaging) scan may aid in the diagnosis. For acute pain, treatment consists of anti-inflammatory drugs, muscle relaxants, rest, ice, or heat. Narcotic pain medicines may be needed for short-term treatment of sudden worsening of pain. Due to their addictive potential, narcotics are not advised for long-term pain management. Other types of medicines are preferred. Surgery is usually not used to treat this condition unless there is a complication (such as nerve root compression). Home Care: FOR NECK PAIN: Use a comfortable pillow that supports the head and keeps the spine in a neutral position. The head should not be tilted forward or backward. FOR BACK PAIN: Avoid prolonged sitting. This puts more stress on the lower back than standing or walking. Establishing a regular exercise program to strengthen the supporting muscles of the spine will make it easier to live with DDD. During the first2 days after a flare-up of your pain, apply anice pack to the painful area for 20 minutes every 2-4 hours. This will reduce swelling and pain.Heat (hot shower, hot bath, or heating pad) works well for muscle spasm. You can start with ice, then switch to heat after2 days. Some patients feel best alternating ice and heat treatments. Use the method that feelsbest to you. You may use acetaminophen (Tylenol) or ibuprofen (Motrin, Advil) to control pain, unless another pain medicine was prescribed. [NOTE: If you have chronic liver or kidney disease or ever had a stomach ulcer or GI bleeding, talk with your doctor before using these medicines.] Follow Up with your physician, or as directed by our staff. [NOTE: If x-rays, a CT scan or an MRI scan were taken, they will be reviewed by a radiologist. You will be notified of any new findings that may affect your care.] Return Promptly or contact your doctor if any of the following occur: Increasing back pain New weakness, numbness, or pain in one or both arms or legs Foot drop (foot drags when you walk) Loss of bowel or bladder control Numbness or tingling in the buttock or groin area Unexplained fever over 100.4F (38.0C) Tramadol Hydrochloride Oral tablet What is this medicine? TRAMADOL (TRA ma dole) is a pain reliever. It is used to treat moderate to severe pain in adults. How should I use this medicine? Take this medicine by mouth with a full glass of water. Follow the directions on the prescription label. If the medicine upsets your stomach, take it with food or milk. Do not take more medicine than you are told to take. Talk to your sexual health physician regarding the use of this medicine in children. Special care may be needed. What side effects may I notice from receiving this medicine? Side effects that you should report to your doctor or health director of medicare as soon as possible: allergic reactions like skin rash, itching or hives, swelling of the face, lips, or tongue breathing difficulties, wheezing confusion itching light headedness or fainting spells redness, blistering, peeling or loosening of the skin, including inside the mouth seizures Side effects that usually do not require medical attention (report to your doctor or health director of medicare if they continue or are bothersome): constipation dizziness drowsiness headache nausea, vomiting What may interact with this medicine? Do not take this medicine with any of the following medications: MAOIs like Carbex, Eldepryl, Marplan, Nardil, and Parnate This medicine may also interact with the following medications: alcohol or medicines that contain alcohol antihistamines benzodiazepines bupropion carbamazepine or oxcarbazepine clozapine cyclobenzaprine digoxin furazolidone linezolid medicines for depression, anxiety, or psychotic disturbances medicines for migraine headache like almotriptan, eletriptan, frovatriptan, naratriptan, rizatriptan, sumatriptan, zolmitriptan medicines for pain like pentazocine, buprenorphine, butorphanol, meperidine, nalbuphine, and propoxyphene medicines for sleep muscle relaxants naltrexone phenobarbital phenothiazines like perphenazine, thioridazine, chlorpromazine, mesoridazine, fluphenazine, prochlorperazine, promazine, and trifluoperazine procarbazine warfarin What if I miss a dose? If you miss a dose, take it as soon as you can. If it is almost time for your next dose, take only that dose. Do not take double or extra doses. Where should I keep my medicine? Keep out of the reach of children. Store at room temperature between 15 and 30 degrees C (59 and 86 degrees F). Keep container tightly closed. Throw away any unused medicine after the expiration date. What should I tell my health care provider before I take this medicine? They need to know if you have any of these conditions: brain tumor depression drug abuse or addiction head injury if you frequently drink alcohol containing drinks kidney disease or trouble passing urine liver disease lung disease, asthma, or breathing problems seizures or epilepsy suicidal thoughts, plans, or attempt; a previous suicide attempt by you or a family member an unusual or allergic reaction to tramadol, codeine, other medicines, foods, dyes, or preservatives or trying to get breast-feeding What should I watch for while using this medicine? Tell your doctor or health director of medicare if your pain does not go away, if it gets worse, or if you have new or a different type of pain. You may develop tolerance to the medicine. Tolerance means that you will need a higher dose of the medicine for pain relief. Tolerance is normal and is expected if you take this medicine for a long time. Do not suddenly stop taking your medicine because you may develop a severe reaction. Your body becomes used to the medicine. This does NOT mean you are addicted. Addiction is a behavior related to getting and using a drug for a non-medical reason. If you have pain, you have a medical reason to take pain medicine. Your doctor will tell you how much medicine to take. If your doctor wants you to stop the medicine, the dose will be slowly lowered over time to avoid any side effects. You may get drowsy or dizzy. Do not drive, use machinery, or do anything that needs mental alertness until you know how this medicine affects you. Do not stand or sit up quickly, especially if you are an older patient. This reduces the risk of dizzy or fainting spells. Alcohol can increase or decrease the effects of this medicine. Avoid alcoholic drinks. You may have constipation. Try to have a bowel movement at least every 2 to 3 days. If you do not have a bowel movement for 3 days, call your doctor or health director of medicare. Your mouth may get dry. Chewing sugarless gum or sucking hard candy, and drinking plenty of water may help. Contact your doctor if the problem does not go away or is severe. Ibuprofen Oral tablet What is this medicine? IBUPROFEN (eye BYOO proe fen) is a non-steroidal anti-inflammatory drug (NSAID). It is used for dental pain, fever, headaches or migraines, osteoarthritis, rheumatoid arthritis, or painful monthly periods. It can also relieve minor aches and pains caused by a cold, flu, or sore throat. How should I use this medicine? Take this medicine by mouth with a glass of water. Follow the directions on the prescription label. Take this medicine with food if your stomach gets upset. Try to not lie down for at least 10 minutes after you take the medicine. Take your medicine at regular intervals. Do not take your medicine more often than directed. A special MedGuide will be given to you by the pharmacist with each prescription and refill. Be sure to read this information carefully each time. Talk to your sexual health physician regarding the use of this medicine in children. Special care may be needed. What side effects may I notice from receiving this medicine? Side effects that you should report to your doctor or health director of medicare as soon as possible: allergic reactions like skin rash, itching or hives, swelling of the face, lips, or tongue black or bloody stools, blood in the urine or in vomit breathing problems changes in vision chest pain general ill feeling or flu-like symptoms nausea or vomiting redness, blistering, peeling or loosening of the skin, including inside the mouth slurred speech or weakness on one side of the body stomach pain unexplained weight gain or swelling unusually weak or tired yellowing of eyes or skin Side effects that usually do not require medical attention (report to your doctor or health director of medicare if they continue or are bothersome): constipation or diarrhea dizziness gas or heartburn stomach upset What may interact with this medicine? Do not take this medicine with any of the following medications: cidofovir ketorolac methotrexate pemetrexed This medicine may also interact with the following medications: alcohol aspirin diuretics lithium other drugs for inflammation like prednisone warfarin What if I miss a dose? If you miss a dose, take it as soon as you can. If it is almost time for your next dose, take only that dose. Do not take double or extra doses. Where should I keep my medicine? Keep out of the reach of children. Store at room temperature between 15 and 30 degrees C (59 and 86 degrees F). Keep container tightly closed. Throw away any unused medicine after the expiration date. What should I tell my health care provider before I take this medicine? They need to know if you have any of these conditions: asthma cigarette smoker drink more than 3 alcohol containing drinks a day heart disease or circulation problems such as heart failure or leg edema (fluid retention) high blood pressure kidney disease liver disease stomach bleeding or ulcers an unusual or allergic reaction to ibuprofen, aspirin, other NSAIDS, other medicines, foods, dyes, or preservatives or trying to get breast-feeding What should I watch for while using this medicine? Tell your doctor or healthcare professional if your symptoms do not start to get better or if they get worse. This medicine does not prevent heart attack or stroke. In fact, this medicine may increase the chance of a heart attack or stroke. The chance may increase with longer use of this medicine and in people who have heart disease. If you take aspirin to prevent heart attack or stroke, talk with your doctor or health director of medicare. Do not take other medicines that contain aspirin, ibuprofen, or naproxen with this medicine. Side effects such as stomach upset, nausea, or ulcers may be more likely to occur. Many medicines available without a prescription should not be taken with this medicine. This medicine can cause ulcers and bleeding in the stomach and intestines at any time during treatment. Ulcers and bleeding can happen without warning symptoms and can cause . To reduce your risk, do not smoke cigarettes or drink alcohol while you are taking this medicine. You may get drowsy or dizzy. Do not drive, use machinery, or do anything that needs mental alertness until you know how this medicine affects you. Do not stand or sit up quickly, especially if you are an older patient. This reduces the risk of dizzy or fainting spells. This medicine can cause you to bleed more easily. Try to avoid damage to your teeth and gums when you brush or floss your teeth. You have been given the following additional information: Back Pain (Acute Or Chronic) Back Pain W/ Sciatica Degenerative Disk Disease Tramadol Hydrochloride Oral tablet Ibuprofen Oral tablet No driving or operating machinery while taking medication. No lifting greater than 5 lbs, no bending or stooping or no prolonged sitting. (Electronically signed by Anshul Coreas MD 06/23/2016 15:34)
--- NOTE | 2016-06-23 15:34 | ED MAR SUMMARY ---
..... Medication Administration Record [facility] [address], [place] [id number] Patient: RAHEL PERRY Visit ID: [id number] 26y, F Weight: 63.5 kg Height/Length: 66 in BMI: 22.6 ALLERGIES: No Known Drug Allergy
--- NOTE | 2016-06-23 15:34 | ED MED RECONCILIATION SUMMARY ---
Patient: RAHEL PERRY Medication Reconciliation Report [facility] VisitID: [id number] [address] [place] [address] 26y, F Registration Date/Time: 06/23/2016 Weight: 63.5 kg Height/Length: 66 in. BMI: 22.6 ALLERGIES: No Known Drug Allergy The patient's Home Medications are listed below: THE FOLLOWING MEDICATIONS NEED TO BE RECONCILED: OxyCODONE HCl Oral 5 mg The source(s) of the original Home Medication information: patient The following Medications were given to the patient in the Emergency Department: None. The following Medications were prescribed to the patient: Motrin (available over the counter): take according to label instructions. -- Anshul Coreas MD Ultram 50 mg: take 1-2 orally every 6 hours as needed for pain. Dispense fifteen (15). No refills. Substitution is permissible. -- Anshul Coreas MD
--- NOTE | 2016-06-23 15:34 | ED MED RECONCILIATION SUMMARY ---
Patient: RAHEL PERRY Medication Reconciliation Report [facility] VisitID: [id number] [address] [place] [address] 26y, F Registration Date/Time: 06/23/2016 Weight: 63.5 kg Height/Length: 66 in. BMI: 22.6 ALLERGIES: No Known Drug Allergy The patient's Home Medications are listed below: THE FOLLOWING MEDICATIONS NEED TO BE RECONCILED: OxyCODONE HCl Oral 5 mg The source(s) of the original Home Medication information: patient The following Medications were given to the patient in the Emergency Department: None. The following Medications were prescribed to the patient: Motrin (available over the counter): take according to label instructions. -- Anshul Coreas MD Ultram 50 mg: take 1-2 orally every 6 hours as needed for pain. Dispense fifteen (15). No refills. Substitution is permissible. -- Anshul Coreas MD
== END 2016-06-23 11:00 | disposition home or self-care (01) ==
LOC: ED SRH 09:37
DX: M54.9 Dorsalgia, unspecified (principal); G89.29 Other chronic pain; F17.210 Nicotine dependence, cigarettes, uncomplicated

== ENCOUNTER 2016-09-16 22:20 | Emergency (ER) | payer OTHER ==
--- NOTE | 2016-09-16 22:33 | ED NURSING NOTES ---
Clinical Report - Nurses [facility] [address] [place] [address] 09/16/2016 22:21 [id number] Triage time 22:25 Sep 16 2016. Acuity: LEVEL 4. Chief Complaint: (upper jaw pain on the left side of face that began yesterday, denies trauma, no outward signs of injury). Alert. No acute distress. SEPSIS SCREEN: Sepsis Screen. Negative (no infection suspected/documented). CHRISTOPHRE COMA SCORE: Christopher Coma Scale: 15- eyes open spontaneously (4); best verbal response- oriented x 4 (5); best motor response- obeys commands (6). --22:30 Lacey Chapa R.N. 22:25 09/16/16. BP: 130/80. HR: 86. RR: 17. O2 saturation: 100%. Temp: 98.6 F. Pain level now: 10/04. --22:30 Lacey Chapa R.N. Weight: 64.8 kg stated. Height/Length: 66 inches Per Patient. BMI: 23.1. --22:27 Lacey Chapa R.N. Medications None. --22:26 Lacey Chapa R.N. Medication/allergy information source: the patient. --22:30 Lacey Chapa R.N. Allergies None. --22:27 Lacey Chapa R.N. History Arrived by private vehicle. Historian: patient. This started yesterday. 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 PAST MEDICAL HX: Immunizations: up-to-date. Last normal menstrual period- 3 months ago pt gets depo injections. Uses depo injections. SOCIAL HX: Smoker- current status unknown (cigarette). No alcohol use or drug use. No infectious disease exposure. ABUSE ASSESSMENT: No report of abuse. SELF HARM ASSESSMENT: A self harm assessment was performed. The patient answered "no" to the question "Do you have thoughts of harming or killing yourself?". FALL RISK ASSESSMENT: Fall risk assessment completed. No fall risk identified. NUTRITIONAL RISK ASSESSMENT: The nutritional risk assessment revealed no deficiencies. FUNCTIONAL ASSESSMENT: Functional assessment: no impairments noted. LEARNING NEEDS ASSESSMENT: The learning needs assessment revealed no barriers. SKIN INTEGRITY ASSESSMENT: Skin integrity risk assessment completed. No skin integrity risk identified. --22:30 Lacey Chapa R.N. PROBLEMS: Asthma. Back Pain. Anemia. Hip dysplasia . --22:27 Lacey Chapa R.N. ADDITIONAL SURGERIES: Hip Surgery. Left hip surgeries x 6 (periacetabular osteotomy). --22:27 Lacey Chapa R.N. Interventions ID band on patient. --22:30 Lacey Chapa R.N. PHYSICAL ASSESSMENT Ambulatory to room. GENERAL / NEURO / PSYCH: Alert. Oriented X 4. Appears in no acute distress. HEENT: Pupils equal, round and reactive to light. No facial asymmetry noted. Mucous membranes are pink. RESPIRATORY: Respirations not labored. GI / : Abdomen soft. SKIN: Skin intact. Skin is warm and dry. Normal skin turgor. --22:30 Lacey Chapa R.N. NURSING PROGRESS NOTES Reassurance given. Patient identifiers checked. Call light placed in reach. Side rails up x 1. Bed placed in lowest position. Brakes of bed on. Patient ready for evaluation- chart flagged. --22:31 Lacey Chapa R.N. 22:45 09/16/2016 Amoxicillin PO 500 mg given. Allergies verified and confirmed 5 rights. --22:55 Lacey Chapa R.N. 22:46 09/16/2016 Tramadol (TraMADol HCl) PO 50 mg given. Allergies verified, confirmed 5 rights and sedative warning given to the patient. --22:56 Lacey Chapa R.N. DISPOSITION / DISCHARGE Condition at departure: unchanged. No learning barriers present. Discharge instructions provided and reviewed with the patient. Reviewed medication(s) side effects and course information. Prescription(s) given to the patient. Reviewed referrals (pt to call dentist in morning.). Patient verbalized understanding. Written instructions provided in Scottish. The patient was discharged by the physician kindergarten assistant. She was discharged home and accompanied by welder fitter apprentice. She left the Emergency Department ambulatory and via private vehicle. --22:58 Lacey Chapa R.N. 22:56 09/16/16. BP: deferred. HR: deferred. RR: deferred. O2 saturation: deferred. Temp: deferred. Pain level now deferred. --22:58 Lacey Chapa R.N. Locked/Released at 09/16/2016 23:21 by Lacey Chapa R.N.
--- NOTE | 2016-09-16 22:33 | ED CLINICAL REPORT ---
Clinical Report - Physicians/Mid Levels [facility] [address] [place] [address] 09/16/2016 22:21 [id number] Time Seen: 22:37 Sep 16 2016. Arrived- By private vehicle. Historian- patient. HISTORY OF PRESENT ILLNESS Chief Complaint: DENTAL PAIN. This started yesterday and is still present. Pain described as mild. No mouth sores or nasal discharge. She has had toothache. (Left dental pain. Worsens with any eating. Has been unable T on the left side. Reports minor congestion recently. Denies a cough. Denies any otalgia.). REVIEW OF SYSTEMS No fever, cough, difficulty breathing, headache or joint pain. All systems otherwise negative, except as recorded above. PAST HISTORY Problems: Asthma. Back Pain. Anemia. Hip dysplasia . Additional Surgeries: Hip Surgery. Left hip surgeries x 6 (periacetabular osteotomy). Medications: None. Allergies: None. SOCIAL HISTORY Smoker- current status unknown. No alcohol use or drug use. ADDITIONAL NOTES The nursing notes have been reviewed. PHYSICAL EXAM Vital Signs: 09/16/2016 22:25 BP: 130/80. HR: 86. RR: 17. O2 saturation: 100%. Temp: 98.6 F. Pain level now: 6/10. Appearance: Alert. Head: Normal external inspection. ENT: Dental tenderness (left upper molar tenderness, surrounding erythema, no mass). Nose normal. Lips normal. No trismus present. Uvula midline. No trismus. Neck: Trachea midline. No adenopathy. Thyroid normal. No meningeal signs. CVS: Normal heart rate and rhythm. Heart sounds normal. No extra heart sounds. Respiratory: No respiratory distress. Breath sounds normal. No decreased air movement. Skin: Normal skin color. Neuro: Oriented X 3. No motor deficit. PROGRESS AND PROCEDURES Course of Care: Patient with uvula midline. No facial swelling. No rash. Afebrile. No signs of Zacarias's angina. No facial tenderness. Afebrile. Patient is stable. Symptoms better. Patient/family counseled. Disposition: Discharged. Condition: good. CLINICAL IMPRESSION Dental abscess. No sinus tract. INSTRUCTIONS Drink plenty of fluids. Prescription Medications: Amoxicillin 500 mg tablets: take 1 orally every 8 hours for 10 days. No refills. Motrin 800 mg tablets: take 1 tablet orally every 8 hours for 5 days, as needed for pain. Dispense fifteen (15). No refill. Substitution is permissible. Follow-up: Follow up with a specialist in seven days. Understanding of the discharge instructions verbalized by patient. (Electronically signed by Shira Martinez P.A.-C 09/16/2016 22:45)
--- NOTE | 2016-09-16 22:33 | ED ORDER SUMMARY ---
..... Patient: RAHEL PERRY OrderSheet [facility] VisitID: [id number] [address] [place] [address] 26y, F Registration Date/Time: 09/16/2016 ORDER SHEET Weight: 64.8 kg (stated) Allergies: None GENERAL ORDERS: MEDICATION ORDERS: Amoxicillin PO 500 mg (NOW) (22:32 09/16/2016 EKchristinaleeulogio P.A.-C) (Ack 22:40 KPage-Kuchan R.N.) (22:55 KPage-Kuchan R.N.) Tramadol PO 50 mg (NOW) (22:32 09/16/2016 Agusto P.A.-C) (Ack 22:40 KPage-Kuchan R.N.) (22:56 KPage-Kuchan R.N.) IV FLUIDS: ORDER SHEET NOTES: [Electronically signed by Shira Martinez PChandanaA.-C (22:45 09/16/2016)] [Electronically signed by Lacey Chapa R.N. (23:21 09/16/2016)] [Electronically locked/signed by Lacey Chapa R.N. (23:21 09/16/2016)]
--- NOTE | 2016-09-16 22:33 | ED CLINICAL REPORT ---
Clinical Report - Physicians/Mid Levels [facility] [address] [place] [address] 09/16/2016 22:21 [id number] Time Seen: 22:37 Sep 16 2016. Arrived- By private vehicle. Historian- patient. HISTORY OF PRESENT ILLNESS Chief Complaint: DENTAL PAIN. This started yesterday and is still present. Pain described as mild. No mouth sores or nasal discharge. She has had toothache. (Left dental pain. Worsens with any eating. Has been unable T on the left side. Reports minor congestion recently. Denies a cough. Denies any otalgia.). REVIEW OF SYSTEMS No fever, cough, difficulty breathing, headache or joint pain. All systems otherwise negative, except as recorded above. PAST HISTORY Problems: Asthma. Back Pain. Anemia. Hip dysplasia . Additional Surgeries: Hip Surgery. Left hip surgeries x 6 (periacetabular osteotomy). Medications: None. Allergies: None. SOCIAL HISTORY Smoker- current status unknown. No alcohol use or drug use. ADDITIONAL NOTES The nursing notes have been reviewed. PHYSICAL EXAM Vital Signs: 09/16/2016 22:25 BP: 130/80. HR: 86. RR: 17. O2 saturation: 100%. Temp: 98.6 F. Pain level now: 6/10. Appearance: Alert. Head: Normal external inspection. ENT: Dental tenderness (left upper molar tenderness, surrounding erythema, no mass). Nose normal. Lips normal. No trismus present. Uvula midline. No trismus. Neck: Trachea midline. No adenopathy. Thyroid normal. No meningeal signs. CVS: Normal heart rate and rhythm. Heart sounds normal. No extra heart sounds. Respiratory: No respiratory distress. Breath sounds normal. No decreased air movement. Skin: Normal skin color. Neuro: Oriented X 3. No motor deficit. PROGRESS AND PROCEDURES Course of Care: Patient with uvula midline. No facial swelling. No rash. Afebrile. No signs of Zacarias's angina. No facial tenderness. Afebrile. Patient is stable. Symptoms better. Patient/family counseled. Disposition: Discharged. Condition: good. CLINICAL IMPRESSION Dental abscess. No sinus tract. INSTRUCTIONS Drink plenty of fluids. Prescription Medications: Amoxicillin 500 mg tablets: take 1 orally every 8 hours for 10 days. No refills. Motrin 800 mg tablets: take 1 tablet orally every 8 hours for 5 days, as needed for pain. Dispense fifteen (15). No refill. Substitution is permissible. Follow-up: Follow up with a specialist in seven days. Understanding of the discharge instructions verbalized by patient. (Electronically signed by Shira Martinez P.A.-C 09/16/2016 22:45)
--- NOTE | 2016-09-16 22:33 | ED ORDER SUMMARY ---
..... Patient: RAHEL PERRY OrderSheet [facility] VisitID: [id number] [address] [place] [address] 26y, F Registration Date/Time: 09/16/2016 ORDER SHEET Weight: 64.8 kg (stated) Allergies: None GENERAL ORDERS: MEDICATION ORDERS: Amoxicillin PO 500 mg (NOW) (22:32 09/16/2016 EKchristinaleeulogio P.A.-C) (Ack 22:40 KPage-Kuchan R.N.) (22:55 KPage-Kuchan R.N.) Tramadol PO 50 mg (NOW) (22:32 09/16/2016 Agusto P.A.-C) (Ack 22:40 KPage-Kuchan R.N.) (22:56 KPage-Kuchan R.N.) IV FLUIDS: ORDER SHEET NOTES: [Electronically signed by Shira Martinez PChandanaA.-C (22:45 09/16/2016)] [Electronically signed by Lacey Chapa R.N. (23:21 09/16/2016)] [Electronically locked/signed by Lacey Chapa R.N. (23:21 09/16/2016)]
--- NOTE | 2016-09-16 22:33 | ED NURSING NOTES ---
Clinical Report - Nurses [facility] [address] [place] [address] 09/16/2016 22:21 [id number] Triage time 22:25 Sep 16 2016. Acuity: LEVEL 4. Chief Complaint: (upper jaw pain on the left side of face that began yesterday, denies trauma, no outward signs of injury). Alert. No acute distress. SEPSIS SCREEN: Sepsis Screen. Negative (no infection suspected/documented). CHRISTOPHER COMA SCORE: Christopher Coma Scale: 15- eyes open spontaneously (4); best verbal response- oriented x 4 (5); best motor response- obeys commands (6). --22:30 Lacey Chapa R.N. 22:25 09/16/16. BP: 130/80. HR: 86. RR: 17. O2 saturation: 100%. Temp: 98.6 F. Pain level now: 10/04. --22:30 Lacey Chapa R.N. Weight: 64.8 kg stated. Height/Length: 66 inches Per Patient. BMI: 23.1. --22:27 Lacey Chapa R.N. Medications None. --22:26 Lacey Chapa R.N. Medication/allergy information source: the patient. --22:30 Lacey Chapa R.N. Allergies None. --22:27 Lacey Chapa R.N. History Arrived by private vehicle. Historian: patient. This started yesterday. 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 PAST MEDICAL HX: Immunizations: up-to-date. Last normal menstrual period- 3 months ago pt gets depo injections. Uses depo injections. SOCIAL HX: Smoker- current status unknown (cigarette). No alcohol use or drug use. No infectious disease exposure. ABUSE ASSESSMENT: No report of abuse. SELF HARM ASSESSMENT: A self harm assessment was performed. The patient answered "no" to the question "Do you have thoughts of harming or killing yourself?". FALL RISK ASSESSMENT: Fall risk assessment completed. No fall risk identified. NUTRITIONAL RISK ASSESSMENT: The nutritional risk assessment revealed no deficiencies. FUNCTIONAL ASSESSMENT: Functional assessment: no impairments noted. LEARNING NEEDS ASSESSMENT: The learning needs assessment revealed no barriers. SKIN INTEGRITY ASSESSMENT: Skin integrity risk assessment completed. No skin integrity risk identified. --22:30 Lacey Chapa R.N. PROBLEMS: Asthma. Back Pain. Anemia. Hip dysplasia . --22:27 Lacey Chapa R.N. ADDITIONAL SURGERIES: Hip Surgery. Left hip surgeries x 6 (periacetabular osteotomy). --22:27 Lacey Chapa R.N. Interventions ID band on patient. --22:30 Lacey Chapa R.N. PHYSICAL ASSESSMENT Ambulatory to room. GENERAL / NEURO / PSYCH: Alert. Oriented X 4. Appears in no acute distress. HEENT: Pupils equal, round and reactive to light. No facial asymmetry noted. Mucous membranes are pink. RESPIRATORY: Respirations not labored. GI / : Abdomen soft. SKIN: Skin intact. Skin is warm and dry. Normal skin turgor. --22:30 Lacey Chapa R.N. NURSING PROGRESS NOTES Reassurance given. Patient identifiers checked. Call light placed in reach. Side rails up x 1. Bed placed in lowest position. Brakes of bed on. Patient ready for evaluation- chart flagged. --22:31 Lacey Chapa R.N. 22:45 09/16/2016 Amoxicillin PO 500 mg given. Allergies verified and confirmed 5 rights. --22:55 Lacey Chapa R.N. 22:46 09/16/2016 Tramadol (TraMADol HCl) PO 50 mg given. Allergies verified, confirmed 5 rights and sedative warning given to the patient. --22:56 Lacey Chapa R.N. DISPOSITION / DISCHARGE Condition at departure: unchanged. No learning barriers present. Discharge instructions provided and reviewed with the patient. Reviewed medication(s) side effects and course information. Prescription(s) given to the patient. Reviewed referrals (pt to call dentist in morning.). Patient verbalized understanding. Written instructions provided in [place]ian. The patient was discharged by the physician personnel assistant. She was discharged home and accompanied by vp software support. She left the Emergency Department ambulatory and via private vehicle. --22:58 Lacey Chapa R.N. 22:56 09/16/16. BP: deferred. HR: deferred. RR: deferred. O2 saturation: deferred. Temp: deferred. Pain level now deferred. --22:58 Lacey Chapa R.N. Locked/Released at 09/16/2016 23:21 by Lacey Chapa R.N.
--- NOTE | 2016-09-16 23:21 | ED MED RECONCILIATION SUMMARY ---
Patient: RAHEL PERRY Medication Reconciliation Report [facility] VisitID: [id number] [address] [place] [address] 26y, F Registration Date/Time: 09/16/2016 Weight: 64.8 kg Height/Length: 66 in. BMI: 23.1 ALLERGIES: None The patient's Home Medications are listed below: NONE. The source(s) of the original Home Medication information: patient The following Medications were given to the patient in the Emergency Department: Amoxicillin [PO] PO 500 mg, administered: 09/16/2016 10:45:00 PM Tramadol [PO] PO 50 mg, administered: 09/16/2016 10:46:00 PM The following Medications were prescribed to the patient: Amoxicillin 500 mg tablets: take 1 orally every 8 hours for 10 days. No refills. -- Shira Martinez, P.A.-Maximino Motrin 800 mg tablets: take 1 tablet orally every 8 hours for 5 days, as needed for pain. Dispense fifteen (15). No refill. Substitution is permissible. -- Shira Martinez, P.A.-C
--- NOTE | 2016-09-16 23:21 | ED DISCHARGE INSTRUCTIONS ---
Patient: RAHEL PERRY General Instructions [facility] VisitID: [id number] [place] [address] 26y, F Registration Date/Time: 09/16/2016 Dental abscess. No sinus tract. INSTRUCTIONS Drink plenty of fluids. Prescription Medications: Amoxicillin 500 mg tablets: take 1 orally every 8 hours for 10 days. No refills. Motrin 800 mg tablets: take 1 tablet orally every 8 hours for 5 days, as needed for pain. Dispense fifteen (15). No refill. Substitution is permissible. Follow-up: Follow up with a specialist in seven days. Understanding of the discharge instructions verbalized by patient. ADDITIONAL INFORMATION Dental Abscess With Facial Cellulitis A dental abscess is an infection at the base of a tooth. When this is untreated, it spreads to the gum near the tooth causing swelling and pain. More severe infections cause facial swelling as the bacteria spread to the nearby tissues of the face. This is a very serious condition. Once the swelling begins, it can spread rapidly. A dental abscess usually starts with a crack or cavity in the tooth. The pain is often made worse by drinking hot or cold fluids, or biting on hard foods and may spread from the tooth to the ear or jaw on the same side. Home Care: Avoid hot and cold foods and liquids since your tooth may be sensitive to temperature changes. If your tooth is chipped or cracked, or if there is a large open cavity, apply oil of cloves or oil of peppermint (available mstt-szz-tvphbdl in drug stores) directly to the tooth to reduce pain. Some pharmacies carry an jfmj-qxr-vnjktta toothache kit. This contains a paste, which can be applied over the exposed tooth to decrease sensitivity. A cold pack on your jaw over the sore area may help reduce pain. You may use acetaminophen (Tylenol) or ibuprofen (Motrin, Advil) to control pain, unless another medicine was prescribed. [NOTE: If you have chronic liver or kidney disease or ever had a stomach ulcer or GI bleeding, talk with your doctor before using these medicines.] An antibiotic will be prescribed. Take it exactly as directed. Do not miss any doses. Follow-Up as advised with a dentist or oral surgeon. Severe cases of cellulitis must be checked again within 24 hours. Once an infection occurs in a tooth, it will continue to be a problem until the infection is drained (surgery or root canal) or the tooth is pulled. Get Prompt Medical Attention if any of the following occur: Swelling spreads to the upper half of your face or your eyelids begin to swell shut Pain worsens or spreads to the neck Fever of 100.4F (38C) or higher, or as directed by your healthcare provider Unusual drowsiness, headache or a stiff neck; weakness or fainting Difficulty swallowing or breathing Amoxicillin Trihydrate Oral tablet What is this medicine? AMOXICILLIN (a mox i NHI in) is a penicillin antibiotic. It is used to treat certain kinds of bacterial infections. It will not work for colds, flu, or other viral infections. How should I use this medicine? Take this medicine by mouth with a glass of water. Follow the directions on your prescription label. You may take this medicine with food or on an empty stomach. Take your medicine at regular intervals. Do not take your medicine more often than directed. Take all of your medicine as directed even if you think your are better. Do not skip doses or stop your medicine early. Talk to your manager employee relations regarding the use of this medicine in children. While this drug may be prescribed for selected conditions, precautions do apply. What side effects may I notice from receiving this medicine? Side effects that you should report to your doctor or health rn care manager as soon as possible: allergic reactions like skin rash, itching or hives, swelling of the face, lips, or tongue breathing problems dark urine redness, blistering, peeling or loosening of the skin, including inside the mouth seizures severe or watery diarrhea trouble passing urine or change in the amount of urine unusual bleeding or bruising unusually weak or tired yellowing of the eyes or skin Side effects that usually do not require medical attention (report to your doctor or health rn care manager if they continue or are bothersome): dizziness headache stomach upset trouble sleeping What may interact with this medicine? amiloride control pills chloramphenicol macrolides probenecid sulfonamides tetracyclines What if I miss a dose? If you miss a dose, take it as soon as you can. If it is almost time for your next dose, take only that dose. Do not take double or extra doses. Where should I keep my medicine? Keep out of the reach of children. Store between 68 and 77 degrees F (20 and 25 degrees C). Keep bottle closed tightly. Throw away any unused medicine after the expiration date. What should I tell my health care provider before I take this medicine? They need to know if you have any of these conditions: asthma kidney disease an unusual or allergic reaction to amoxicillin, other penicillins, cephalosporin antibiotics, other medicines, foods, dyes, or preservatives or trying to get breast-feeding What should I watch for while using this medicine? Tell your doctor or health rn care manager if your symptoms do not improve in 2 or 3 days. Take all of the doses of your medicine as directed. Do not skip doses or stop your medicine early. If you are diabetic, you may get a false positive result for sugar in your urine with certain brands of urine tests. Check with your doctor. Do not treat diarrhea with wytq-rxi-azdsidw products. Contact your doctor if you have diarrhea that lasts more than 2 days or if the diarrhea is severe and watery. Ibuprofen Oral tablet What is this medicine? IBUPROFEN (eye BYOO proe fen) is a non-steroidal anti-inflammatory drug (NSAID). It is used for dental pain, fever, headaches or migraines, osteoarthritis, rheumatoid arthritis, or painful monthly periods. It can also relieve minor aches and pains caused by a cold, flu, or sore throat. How should I use this medicine? Take this medicine by mouth with a glass of water. Follow the directions on the prescription label. Take this medicine with food if your stomach gets upset. Try to not lie down for at least 10 minutes after you take the medicine. Take your medicine at regular intervals. Do not take your medicine more often than directed. A special MedGuide will be given to you by the pharmacist with each prescription and refill. Be sure to read this information carefully each time. Talk to your manager employee relations regarding the use of this medicine in children. Special care may be needed. What side effects may I notice from receiving this medicine? Side effects that you should report to your doctor or health rn care manager as soon as possible: allergic reactions like skin rash, itching or hives, swelling of the face, lips, or tongue black or bloody stools, blood in the urine or in vomit breathing problems changes in vision chest pain general ill feeling or flu-like symptoms nausea or vomiting redness, blistering, peeling or loosening of the skin, including inside the mouth slurred speech or weakness on one side of the body stomach pain unexplained weight gain or swelling unusually weak or tired yellowing of eyes or skin Side effects that usually do not require medical attention (report to your doctor or health rn care manager if they continue or are bothersome): constipation or diarrhea dizziness gas or heartburn stomach upset What may interact with this medicine? Do not take this medicine with any of the following medications: cidofovir ketorolac methotrexate pemetrexed This medicine may also interact with the following medications: alcohol aspirin diuretics lithium other drugs for inflammation like prednisone warfarin What if I miss a dose? If you miss a dose, take it as soon as you can. If it is almost time for your next dose, take only that dose. Do not take double or extra doses. Where should I keep my medicine? Keep out of the reach of children. Store at room temperature between 15 and 30 degrees C (59 and 86 degrees F). Keep container tightly closed. Throw away any unused medicine after the expiration date. What should I tell my health care provider before I take this medicine? They need to know if you have any of these conditions: asthma cigarette smoker drink more than 3 alcohol containing drinks a day heart disease or circulation problems such as heart failure or leg edema (fluid retention) high blood pressure kidney disease liver disease stomach bleeding or ulcers an unusual or allergic reaction to ibuprofen, aspirin, other NSAIDS, other medicines, foods, dyes, or preservatives or trying to get breast-feeding What should I watch for while using this medicine? Tell your doctor or healthcare professional if your symptoms do not start to get better or if they get worse. This medicine does not prevent heart attack or stroke. In fact, this medicine may increase the chance of a heart attack or stroke. The chance may increase with longer use of this medicine and in people who have heart disease. If you take aspirin to prevent heart attack or stroke, talk with your doctor or health rn care manager. Do not take other medicines that contain aspirin, ibuprofen, or naproxen with this medicine. Side effects such as stomach upset, nausea, or ulcers may be more likely to occur. Many medicines available without a prescription should not be taken with this medicine. This medicine can cause ulcers and bleeding in the stomach and intestines at any time during treatment. Ulcers and bleeding can happen without warning symptoms and can cause . To reduce your risk, do not smoke cigarettes or drink alcohol while you are taking this medicine. You may get drowsy or dizzy. Do not drive, use machinery, or do anything that needs mental alertness until you know how this medicine affects you. Do not stand or sit up quickly, especially if you are an older patient. This reduces the risk of dizzy or fainting spells. This medicine can cause you to bleed more easily. Try to avoid damage to your teeth and gums when you brush or floss your teeth. You have been given the following additional information: Dental Abscess W/ Facial Cellulitis Amoxicillin Trihydrate Oral tablet Ibuprofen Oral tablet (Electronically signed by Shira Martinez P.A.-C 09/16/2016 22:45)
--- NOTE | 2016-09-16 23:21 | ED DISCHARGE INSTRUCTIONS ---
Patient: RAHEL PERRY General Instructions [facility] VisitID: [id number] [place] [address] 26y, F Registration Date/Time: 09/16/2016 Dental abscess. No sinus tract. INSTRUCTIONS Drink plenty of fluids. Prescription Medications: Amoxicillin 500 mg tablets: take 1 orally every 8 hours for 10 days. No refills. Motrin 800 mg tablets: take 1 tablet orally every 8 hours for 5 days, as needed for pain. Dispense fifteen (15). No refill. Substitution is permissible. Follow-up: Follow up with a specialist in seven days. Understanding of the discharge instructions verbalized by patient. ADDITIONAL INFORMATION Dental Abscess With Facial Cellulitis A dental abscess is an infection at the base of a tooth. When this is untreated, it spreads to the gum near the tooth causing swelling and pain. More severe infections cause facial swelling as the bacteria spread to the nearby tissues of the face. This is a very serious condition. Once the swelling begins, it can spread rapidly. A dental abscess usually starts with a crack or cavity in the tooth. The pain is often made worse by drinking hot or cold fluids, or biting on hard foods and may spread from the tooth to the ear or jaw on the same side. Home Care: Avoid hot and cold foods and liquids since your tooth may be sensitive to temperature changes. If your tooth is chipped or cracked, or if there is a large open cavity, apply oil of cloves or oil of peppermint (available mexb-qeb-bikbfsl in drug stores) directly to the tooth to reduce pain. Some pharmacies carry an dahq-nxx-qlyerkj toothache kit. This contains a paste, which can be applied over the exposed tooth to decrease sensitivity. A cold pack on your jaw over the sore area may help reduce pain. You may use acetaminophen (Tylenol) or ibuprofen (Motrin, Advil) to control pain, unless another medicine was prescribed. [NOTE: If you have chronic liver or kidney disease or ever had a stomach ulcer or GI bleeding, talk with your doctor before using these medicines.] An antibiotic will be prescribed. Take it exactly as directed. Do not miss any doses. Follow-Up as advised with a dentist or oral surgeon. Severe cases of cellulitis must be checked again within 24 hours. Once an infection occurs in a tooth, it will continue to be a problem until the infection is drained (surgery or root canal) or the tooth is pulled. Get Prompt Medical Attention if any of the following occur: Swelling spreads to the upper half of your face or your eyelids begin to swell shut Pain worsens or spreads to the neck Fever of 100.4F (38C) or higher, or as directed by your healthcare provider Unusual drowsiness, headache or a stiff neck; weakness or fainting Difficulty swallowing or breathing Amoxicillin Trihydrate Oral tablet What is this medicine? AMOXICILLIN (a mox i NHI in) is a penicillin antibiotic. It is used to treat certain kinds of bacterial infections. It will not work for colds, flu, or other viral infections. How should I use this medicine? Take this medicine by mouth with a glass of water. Follow the directions on your prescription label. You may take this medicine with food or on an empty stomach. Take your medicine at regular intervals. Do not take your medicine more often than directed. Take all of your medicine as directed even if you think your are better. Do not skip doses or stop your medicine early. Talk to your advertising editor regarding the use of this medicine in children. While this drug may be prescribed for selected conditions, precautions do apply. What side effects may I notice from receiving this medicine? Side effects that you should report to your doctor or health personal care worker as soon as possible: allergic reactions like skin rash, itching or hives, swelling of the face, lips, or tongue breathing problems dark urine redness, blistering, peeling or loosening of the skin, including inside the mouth seizures severe or watery diarrhea trouble passing urine or change in the amount of urine unusual bleeding or bruising unusually weak or tired yellowing of the eyes or skin Side effects that usually do not require medical attention (report to your doctor or health personal care worker if they continue or are bothersome): dizziness headache stomach upset trouble sleeping What may interact with this medicine? amiloride control pills chloramphenicol macrolides probenecid sulfonamides tetracyclines What if I miss a dose? If you miss a dose, take it as soon as you can. If it is almost time for your next dose, take only that dose. Do not take double or extra doses. Where should I keep my medicine? Keep out of the reach of children. Store between 68 and 77 degrees F (20 and 25 degrees C). Keep bottle closed tightly. Throw away any unused medicine after the expiration date. What should I tell my health care provider before I take this medicine? They need to know if you have any of these conditions: asthma kidney disease an unusual or allergic reaction to amoxicillin, other penicillins, cephalosporin antibiotics, other medicines, foods, dyes, or preservatives or trying to get breast-feeding What should I watch for while using this medicine? Tell your doctor or health personal care worker if your symptoms do not improve in 2 or 3 days. Take all of the doses of your medicine as directed. Do not skip doses or stop your medicine early. If you are diabetic, you may get a false positive result for sugar in your urine with certain brands of urine tests. Check with your doctor. Do not treat diarrhea with tiby-oiu-mwpetgx products. Contact your doctor if you have diarrhea that lasts more than 2 days or if the diarrhea is severe and watery. Ibuprofen Oral tablet What is this medicine? IBUPROFEN (eye BYOO proe fen) is a non-steroidal anti-inflammatory drug (NSAID). It is used for dental pain, fever, headaches or migraines, osteoarthritis, rheumatoid arthritis, or painful monthly periods. It can also relieve minor aches and pains caused by a cold, flu, or sore throat. How should I use this medicine? Take this medicine by mouth with a glass of water. Follow the directions on the prescription label. Take this medicine with food if your stomach gets upset. Try to not lie down for at least 10 minutes after you take the medicine. Take your medicine at regular intervals. Do not take your medicine more often than directed. A special MedGuide will be given to you by the pharmacist with each prescription and refill. Be sure to read this information carefully each time. Talk to your advertising editor regarding the use of this medicine in children. Special care may be needed. What side effects may I notice from receiving this medicine? Side effects that you should report to your doctor or health personal care worker as soon as possible: allergic reactions like skin rash, itching or hives, swelling of the face, lips, or tongue black or bloody stools, blood in the urine or in vomit breathing problems changes in vision chest pain general ill feeling or flu-like symptoms nausea or vomiting redness, blistering, peeling or loosening of the skin, including inside the mouth slurred speech or weakness on one side of the body stomach pain unexplained weight gain or swelling unusually weak or tired yellowing of eyes or skin Side effects that usually do not require medical attention (report to your doctor or health personal care worker if they continue or are bothersome): constipation or diarrhea dizziness gas or heartburn stomach upset What may interact with this medicine? Do not take this medicine with any of the following medications: cidofovir ketorolac methotrexate pemetrexed This medicine may also interact with the following medications: alcohol aspirin diuretics lithium other drugs for inflammation like prednisone warfarin What if I miss a dose? If you miss a dose, take it as soon as you can. If it is almost time for your next dose, take only that dose. Do not take double or extra doses. Where should I keep my medicine? Keep out of the reach of children. Store at room temperature between 15 and 30 degrees C (59 and 86 degrees F). Keep container tightly closed. Throw away any unused medicine after the expiration date. What should I tell my health care provider before I take this medicine? They need to know if you have any of these conditions: asthma cigarette smoker drink more than 3 alcohol containing drinks a day heart disease or circulation problems such as heart failure or leg edema (fluid retention) high blood pressure kidney disease liver disease stomach bleeding or ulcers an unusual or allergic reaction to ibuprofen, aspirin, other NSAIDS, other medicines, foods, dyes, or preservatives or trying to get breast-feeding What should I watch for while using this medicine? Tell your doctor or healthcare professional if your symptoms do not start to get better or if they get worse. This medicine does not prevent heart attack or stroke. In fact, this medicine may increase the chance of a heart attack or stroke. The chance may increase with longer use of this medicine and in people who have heart disease. If you take aspirin to prevent heart attack or stroke, talk with your doctor or health personal care worker. Do not take other medicines that contain aspirin, ibuprofen, or naproxen with this medicine. Side effects such as stomach upset, nausea, or ulcers may be more likely to occur. Many medicines available without a prescription should not be taken with this medicine. This medicine can cause ulcers and bleeding in the stomach and intestines at any time during treatment. Ulcers and bleeding can happen without warning symptoms and can cause . To reduce your risk, do not smoke cigarettes or drink alcohol while you are taking this medicine. You may get drowsy or dizzy. Do not drive, use machinery, or do anything that needs mental alertness until you know how this medicine affects you. Do not stand or sit up quickly, especially if you are an older patient. This reduces the risk of dizzy or fainting spells. This medicine can cause you to bleed more easily. Try to avoid damage to your teeth and gums when you brush or floss your teeth. You have been given the following additional information: Dental Abscess W/ Facial Cellulitis Amoxicillin Trihydrate Oral tablet Ibuprofen Oral tablet (Electronically signed by Shira Martinez P.A.-C 09/16/2016 22:45)
--- NOTE | 2016-09-16 23:21 | ED MAR SUMMARY ---
..... Medication Administration Record [facility] [address] [place] [address] Patient: RAHEL PERRY Visit ID: [id number] 26y, F Weight: 64.8 kg Height/Length: 66 in BMI: 23.1 ALLERGIES: None Given 22:45 09/16/2016 Lacey Chapa, RChandanaN. Medication Administered: AMOXICILLIN [PO], Dose: 500 mg PO. Medication Ordered: Amoxicillin PO 500 mg (NOW). Given 22:46 09/16/2016 Lacey Chapa, R.N. Medication Administered: TRAMADOL [PO] (TRAMADOL HCL), Dose: 50 mg PO. Medication Ordered: Tramadol PO 50 mg (NOW).
--- NOTE | 2016-09-16 23:21 | ED MAR SUMMARY ---
..... Medication Administration Record [facility] [address] [place] [address] Patient: RAHEL PERRY Visit ID: [id number] 26y, F Weight: 64.8 kg Height/Length: 66 in BMI: 23.1 ALLERGIES: None Given 22:45 09/16/2016 Lacey Chapa, RChandanaN. Medication Administered: AMOXICILLIN [PO], Dose: 500 mg PO. Medication Ordered: Amoxicillin PO 500 mg (NOW). Given 22:46 09/16/2016 Lacey Chapa, R.N. Medication Administered: TRAMADOL [PO] (TRAMADOL HCL), Dose: 50 mg PO. Medication Ordered: Tramadol PO 50 mg (NOW).
--- NOTE | 2016-09-16 23:21 | ED MED RECONCILIATION SUMMARY ---
Patient: RAHEL PERRY Medication Reconciliation Report [facility] VisitID: [id number] [address] [place] [address] 26y, F Registration Date/Time: 09/16/2016 Weight: 64.8 kg Height/Length: 66 in. BMI: 23.1 ALLERGIES: None The patient's Home Medications are listed below: NONE. The source(s) of the original Home Medication information: patient The following Medications were given to the patient in the Emergency Department: Amoxicillin [PO] PO 500 mg, administered: 09/16/2016 10:45:00 PM Tramadol [PO] PO 50 mg, administered: 09/16/2016 10:46:00 PM The following Medications were prescribed to the patient: Amoxicillin 500 mg tablets: take 1 orally every 8 hours for 10 days. No refills. -- Shira Martinez, P.A.-Maximino Motrin 800 mg tablets: take 1 tablet orally every 8 hours for 5 days, as needed for pain. Dispense fifteen (15). No refill. Substitution is permissible. -- Shira Martinez, P.A.-C
== END 2016-09-16 22:53 | disposition home or self-care (01) ==
LOC: ED SRH 22:20
DX: K04.7 Periapical abscess without sinus (principal)

== ENCOUNTER 2016-10-12 19:24 | Emergency (ER) | payer OTHER ==
--- NOTE | 2016-10-12 21:19 | ED NURSING NOTES ---
Clinical Report - Nurses [facility] [place] [address] 10/12/2016 19:25 Patient: RAHEL PERRY TRIAGE Triage time 2050 PM. Acuity: LEVEL 5. Chief Complaint: LEFT LOWER EXTREMITY PAIN and SWELLING. Alert. No acute distress. LUZ MARINA COMA SCORE: [place] Coma Scale: 15- eyes open spontaneously (4); best verbal response- oriented x 4 (5); best motor response- obeys commands (6). --20:55 Ranjana Love R.N. 20:47 10/12/16. BP: 116/62 (regular adult cuff) taken on the left arm, via an automated monitor, while sitting. HR: 71. RR: 18. O2 saturation: 100%. Temp: 98.6 F. Pain level now: 12/04. --20:55 Ranjana Love R.N. Weight: 67.1 kg stated. Height/Length: 66 inches Per Patient. BMI: 23.9. --20:48 Ranjana Love R.N. Medications None. --22:11 Tre Trinh R.N. Allergies No Known Drug Allergy. --20:50 Ranjana Love R.N. Medication/allergy information source: the patient. --20:55 Ranjana Love R.N. History Arrived by private vehicle, and accompanied by family. Primary physician (Dr. Cali). ( Pt states needing a new left hip due to her dysplasia, pt has had an MRI recently, saw her doctor last , surgery is not scheduled yet as per pt " wont be able to get in for surgery until november" only has tramadol for pain, and is here for pain management due to pain.). No injury occurred. This occurred (2013. 3 days has been getting worst). Provoking / relieving factors: worsened by movement to the left and walking. She has had swelling and trouble walking. Treatment GLUE MAKER: (tramadol). PAST MEDICAL HX: Tetanus status: up-to-date. Immunizations: up-to-date. SOCIAL HX: Light tobacco smoker. No alcohol use or drug use. No infectious disease exposure. ABUSE ASSESSMENT: No report of abuse. SELF HARM ASSESSMENT: A self harm assessment was performed. The patient answered "no" to the question "Do you have thoughts of harming or killing yourself?" and "Have you recently had thoughts about harming or killing others?". FALL RISK ASSESSMENT: Fall risk assessment completed. No fall risk identified. NUTRITIONAL RISK ASSESSMENT: The nutritional risk assessment revealed no deficiencies. FUNCTIONAL ASSESSMENT: Functional assessment: no impairments noted. LEARNING NEEDS ASSESSMENT: The learning needs assessment revealed no barriers. --20:55 Ranjana Love R.N. PROBLEMS: Dental Abscess. Asthma. Back Pain. Anemia. Hip dysplasia . --20:50 Ranjana Love R.N. ADDITIONAL SURGERIES: Hip Surgery. Left hip surgeries x 6 (periacetabular osteotomy). --20:50 Ranjana Love R.N. Interventions ID band on patient. --20:55 Ranjana Love R.N. PHYSICAL ASSESSMENT Ambulatory to room. (with cane). GENERAL / NEURO / PSYCH: Oriented X 4. Alert. Appears in no acute distress. Appears in pain. EXTREMITIES: Limited ROM present in the left hip. Extremity pulses are within normal limits. Neuro-vascular status intact to the extremity. No lower extremity edema. Left hip: tenderness and swelling. No laceration, abrasion, puncture wound, foreign body or deformity. SKIN: Skin intact. Skin is warm and dry. --20:55 Ranjana Love R.N. NURSING PROGRESS NOTES The initial plan of care for this patient has been created This plan of care was discussed with the patient. Reassurance given. Two patient identifiers checked. Call light placed in reach. Side rails up x 1. Bed placed in lowest position. Brakes of bed on. Patient ready for evaluation- chart flagged. --20:56 Ranjana Love R.N. DISPOSITION / DISCHARGE 21:35 10/12/16. BP: 100/61. HR: 68. RR: 16. O2 saturation: 100% on room air. Temp: 98.6 F (oral). Pain level now: 07/04. --22:08 Tre Trinh R.N. Departure time: 2134. --22:09 Tre Trinh R.N. 21:35. Condition at departure: unchanged. No learning barriers present. Discharge instructions provided and reviewed with the patient. Reviewed medication(s) dosing information (prescription given to pt). Reviewed referral to family practice. Patient verbalized understanding. Written instructions provided in Polish. The patient was discharged by the physician. She was discharged home and accompanied by hardwood floor sander. She left the Emergency Department ambulatory and via private vehicle. Roofing Machine Tender driving. --22:11 Tre Trinh R.N. Locked/Released at 10/12/2016 22:12 by Tre Trinh R.N.
--- NOTE | 2016-10-12 21:19 | ED NURSING NOTES ---
Clinical Report - Nurses [facility] [place] [address] 10/12/2016 19:25 Patient: RAHEL PERRY TRIAGE Triage time 2050 PM. Acuity: LEVEL 5. Chief Complaint: LEFT LOWER EXTREMITY PAIN and SWELLING. Alert. No acute distress. LUZ MARINA COMA SCORE: [place] Coma Scale: 15- eyes open spontaneously (4); best verbal response- oriented x 4 (5); best motor response- obeys commands (6). --20:55 Ranjana Love R.N. 20:47 10/12/16. BP: 116/62 (regular adult cuff) taken on the left arm, via an automated monitor, while sitting. HR: 71. RR: 18. O2 saturation: 100%. Temp: 98.6 F. Pain level now: 12/04. --20:55 Ranjana Love R.N. Weight: 67.1 kg stated. Height/Length: 66 inches Per Patient. BMI: 23.9. --20:48 Ranjana Love R.N. Medications None. --22:11 Tre Trinh R.N. Allergies No Known Drug Allergy. --20:50 Ranjana Love R.N. Medication/allergy information source: the patient. --20:55 Ranjana Love R.N. History Arrived by private vehicle, and accompanied by family. Primary physician (Dr. Cali). ( Pt states needing a new left hip due to her dysplasia, pt has had an MRI recently, saw her doctor last , surgery is not scheduled yet as per pt " wont be able to get in for surgery until november" only has tramadol for pain, and is here for pain management due to pain.). No injury occurred. This occurred (2013. 3 days has been getting worst). Provoking / relieving factors: worsened by movement to the left and walking. She has had swelling and trouble walking. Treatment PRODUCT MANAGENT INTERN: (tramadol). PAST MEDICAL HX: Tetanus status: up-to-date. Immunizations: up-to-date. SOCIAL HX: Light tobacco smoker. No alcohol use or drug use. No infectious disease exposure. ABUSE ASSESSMENT: No report of abuse. SELF HARM ASSESSMENT: A self harm assessment was performed. The patient answered "no" to the question "Do you have thoughts of harming or killing yourself?" and "Have you recently had thoughts about harming or killing others?". FALL RISK ASSESSMENT: Fall risk assessment completed. No fall risk identified. NUTRITIONAL RISK ASSESSMENT: The nutritional risk assessment revealed no deficiencies. FUNCTIONAL ASSESSMENT: Functional assessment: no impairments noted. LEARNING NEEDS ASSESSMENT: The learning needs assessment revealed no barriers. --20:55 Ranjana Love R.N. PROBLEMS: Dental Abscess. Asthma. Back Pain. Anemia. Hip dysplasia . --20:50 Ranjana Love R.N. ADDITIONAL SURGERIES: Hip Surgery. Left hip surgeries x 6 (periacetabular osteotomy). --20:50 Ranjana Love R.N. Interventions ID band on patient. --20:55 Ranjana Love R.N. PHYSICAL ASSESSMENT Ambulatory to room. (with cane). GENERAL / NEURO / PSYCH: Oriented X 4. Alert. Appears in no acute distress. Appears in pain. EXTREMITIES: Limited ROM present in the left hip. Extremity pulses are within normal limits. Neuro-vascular status intact to the extremity. No lower extremity edema. Left hip: tenderness and swelling. No laceration, abrasion, puncture wound, foreign body or deformity. SKIN: Skin intact. Skin is warm and dry. --20:55 Ranjana Love R.N. NURSING PROGRESS NOTES The initial plan of care for this patient has been created This plan of care was discussed with the patient. Reassurance given. Two patient identifiers checked. Call light placed in reach. Side rails up x 1. Bed placed in lowest position. Brakes of bed on. Patient ready for evaluation- chart flagged. --20:56 Ranjana Love R.N. DISPOSITION / DISCHARGE 21:35 10/12/16. BP: 100/61. HR: 68. RR: 16. O2 saturation: 100% on room air. Temp: 98.6 F (oral). Pain level now: 07/04. --22:08 Tre Trinh R.N. Departure time: 2134. --22:09 Tre Trinh R.N. 21:35. Condition at departure: unchanged. No learning barriers present. Discharge instructions provided and reviewed with the patient. Reviewed medication(s) dosing information (prescription given to pt). Reviewed referral to family practice. Patient verbalized understanding. Written instructions provided in Romansh. The patient was discharged by the physician. She was discharged home and accompanied by windows application administrator. She left the Emergency Department ambulatory and via private vehicle. Washery Engineer driving. --22:11 Tre Trinh R.N. Locked/Released at 10/12/2016 22:12 by Tre Trinh R.N.
--- NOTE | 2016-10-12 21:19 | ED CLINICAL REPORT ---
Clinical Report - Physicians/Mid Levels [facility] [address] [place] [address] 10/12/2016 19:25 [id number] Time Seen: 21:18 Oct 12 2016. Arrived- By private vehicle. Historian- patient. HISTORY OF PRESENT ILLNESS Chief Complaint: LOWER EXTREMITY PAIN. 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 Severity is described as being moderate. It has become recently worse. The quality is noted to be aching, "pain" and similar to prior episodes. Symptoms located in the area of the left hip. The patient has had swelling, but not had redness. She has had difficulty walking. No bladder dysfunction, bowel dysfunction, sensory loss or motor loss. Patient denies an injury. Similar symptoms previously: Chronically. Recent medical care: Not recently seen/assessed. REVIEW OF SYSTEMS No cough, chest pain, fever, skin rash or neck pain. No back pain, sore throat, abdominal pain, vomiting or diarrhea. Due for dx on left hip in November. All systems otherwise negative, except as recorded above. PAST HISTORY ( 4 left hip surgeries due to hip dysplasia.). Medications: None. Allergies: No Known Drug Allergy. SOCIAL HISTORY Light tobacco smoker (cigarette)- less than 1/2 a pack per day. No alcohol use or drug use. ADDITIONAL NOTES The nursing notes have been reviewed. PHYSICAL EXAM Vital Signs: 10/12/2016 20:47 BP: 116/62. HR: 71. RR: 18. O2 saturation: 100%. Temp: 98.6 F. Pain level now: 8/10. Appearance: Alert. Appears to be in pain. Patient in moderate distress. Eyes: Eyes normal inspection. Neck: Normal inspection. Neck supple. CVS: Normal heart rate and rhythm. Respiratory: No respiratory distress. Back: Normal inspection. No tenderness. Skin: Skin intact. Skin warm. Normal skin color. Extremities: Left hip: moderate tenderness and swelling located in the anterior and lateral aspect of the hip. Limited ROM secondary to pain (diminished external and internal rotation). Neurovascular intact distally. No ecchymosis or deformity. Extremities otherwise negative. Neuro: Oriented X 3. No motor deficit. No sensory deficit. Reflexes normal. PROGRESS AND PROCEDURES Patient/family counseled. Disposition: Discharged. Condition: stable. CLINICAL IMPRESSION Hip dysplasia with progressive pain. INSTRUCTIONS You may walk and bear weight as tolerated. Warnings: Further evaluation is necessary. GENERAL WARNINGS: Return or contact your physician immediately if your condition worsens or changes unexpectedly, if not improving as expected, or if other problems arise. Prescription Medications: Oxycodone/APAP 5 mg/325 mg: take 1-2 tablets orally every 4 hours as needed for pain. Dispense fifteen (15). No refill. Follow-up: Follow up with your doctor in two days. Call for the next available appointment. Understanding of the discharge instructions verbalized by patient. (Electronically signed by Nik Uribe MD 10/13/2016 20:42)
--- NOTE | 2016-10-12 21:19 | ED CLINICAL REPORT ---
Clinical Report - Physicians/Mid Levels [facility] [address] [place] [address] 10/12/2016 19:25 [id number] Time Seen: 21:18 Oct 12 2016. Arrived- By private vehicle. Historian- patient. HISTORY OF PRESENT ILLNESS Chief Complaint: LOWER EXTREMITY PAIN. 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 Severity is described as being moderate. It has become recently worse. The quality is noted to be aching, "pain" and similar to prior episodes. Symptoms located in the area of the left hip. The patient has had swelling, but not had redness. She has had difficulty walking. No bladder dysfunction, bowel dysfunction, sensory loss or motor loss. Patient denies an injury. Similar symptoms previously: Chronically. Recent medical care: Not recently seen/assessed. REVIEW OF SYSTEMS No cough, chest pain, fever, skin rash or neck pain. No back pain, sore throat, abdominal pain, vomiting or diarrhea. Due for dx on left hip in November. All systems otherwise negative, except as recorded above. PAST HISTORY ( 4 left hip surgeries due to hip dysplasia.). Medications: None. Allergies: No Known Drug Allergy. SOCIAL HISTORY Light tobacco smoker (cigarette)- less than 1/2 a pack per day. No alcohol use or drug use. ADDITIONAL NOTES The nursing notes have been reviewed. PHYSICAL EXAM Vital Signs: 10/12/2016 20:47 BP: 116/62. HR: 71. RR: 18. O2 saturation: 100%. Temp: 98.6 F. Pain level now: 8/10. Appearance: Alert. Appears to be in pain. Patient in moderate distress. Eyes: Eyes normal inspection. Neck: Normal inspection. Neck supple. CVS: Normal heart rate and rhythm. Respiratory: No respiratory distress. Back: Normal inspection. No tenderness. Skin: Skin intact. Skin warm. Normal skin color. Extremities: Left hip: moderate tenderness and swelling located in the anterior and lateral aspect of the hip. Limited ROM secondary to pain (diminished external and internal rotation). Neurovascular intact distally. No ecchymosis or deformity. Extremities otherwise negative. Neuro: Oriented X 3. No motor deficit. No sensory deficit. Reflexes normal. PROGRESS AND PROCEDURES Patient/family counseled. Disposition: Discharged. Condition: stable. CLINICAL IMPRESSION Hip dysplasia with progressive pain. INSTRUCTIONS You may walk and bear weight as tolerated. Warnings: Further evaluation is necessary. GENERAL WARNINGS: Return or contact your physician immediately if your condition worsens or changes unexpectedly, if not improving as expected, or if other problems arise. Prescription Medications: Oxycodone/APAP 5 mg/325 mg: take 1-2 tablets orally every 4 hours as needed for pain. Dispense fifteen (15). No refill. Follow-up: Follow up with your doctor in two days. Call for the next available appointment. Understanding of the discharge instructions verbalized by patient. (Electronically signed by Nik Uribe MD 10/13/2016 20:42)
--- NOTE | 2016-10-13 20:42 | ED MAR SUMMARY ---
..... Medication Administration Record [facility] [address] [place], [place] [id number] Patient: RAHEL PERRY Visit ID: [id number] 26y, F Weight: 67.1 kg Height/Length: 66 in BMI: 23.9 ALLERGIES: No Known Drug Allergy
--- NOTE | 2016-10-13 20:42 | ED DISCHARGE INSTRUCTIONS ---
Patient: RAHEL PERRY General Instructions [facility] VisitID: [id number] [place] [address] 26y, F Registration Date/Time: 10/12/2016 Hip dysplasia with progressive pain. INSTRUCTIONS You may walk and bear weight as tolerated. Warnings: Further evaluation is necessary. GENERAL WARNINGS: Return or contact your physician immediately if your condition worsens or changes unexpectedly, if not improving as expected, or if other problems arise. Prescription Medications: Oxycodone/APAP 5 mg/325 mg: take 1-2 tablets orally every 4 hours as needed for pain. Dispense fifteen (15). No refill. Follow-up: Follow up with your doctor in two days. Call for the next available appointment. Understanding of the discharge instructions verbalized by patient. ADDITIONAL INFORMATION Oxycodone Hydrochloride, Acetaminophen Oral tablet What is this medicine? ACETAMINOPHEN; OXYCODONE (a set a FUNMILAYO carine fen; ox i KOE done) is a pain reliever. It is used to treat mild to moderate pain. How should I use this medicine? Take this medicine by mouth with a full glass of water. Follow the directions on the prescription label. Take your medicine at regular intervals. Do not take your medicine more often than directed. Talk to your operating systems specialist regarding the use of this medicine in children. Special care may be needed. Patients over 65 years old may have a stronger reaction and need a smaller dose. What side effects may I notice from receiving this medicine? Side effects that you should report to your doctor or health career developer as soon as possible: allergic reactions like skin rash, itching or hives, swelling of the face, lips, or tongue breathing difficulties, wheezing confusion light headedness or fainting spells severe stomach pain yellowing of the skin or the whites of the eyes Side effects that usually do not require medical attention (report to your doctor or health career developer if they continue or are bothersome): dizziness drowsiness nausea vomiting What may interact with this medicine? alcohol antihistamines barbiturates like amobarbital, butalbital, butabarbital, methohexital, pentobarbital, phenobarbital, thiopental, and secobarbital benztropine drugs for bladder problems like solifenacin, trospium, oxybutynin, tolterodine, hyoscyamine, and methscopolamine drugs for breathing problems like ipratropium and tiotropium drugs for certain stomach or intestine problems like propantheline, homatropine methylbromide, glycopyrrolate, atropine, belladonna, and dicyclomine general anesthetics like etomidate, ketamine, nitrous oxide, propofol, desflurane, enflurane, halothane, isoflurane, and sevoflurane medicines for depression, anxiety, or psychotic disturbances medicines for sleep muscle relaxants naltrexone narcotic medicines (opiates) for pain phenothiazines like perphenazine, thioridazine, chlorpromazine, mesoridazine, fluphenazine, prochlorperazine, promazine, and trifluoperazine scopolamine tramadol trihexyphenidyl What if I miss a dose? If you miss a dose, take it as soon as you can. If it is almost time for your next dose, take only that dose. Do not take double or extra doses. Where should I keep my medicine? Keep out of the reach of children. This medicine can be abused. Keep your medicine in a safe place to protect it from theft. Do not share this medicine with anyone. Selling or giving away this medicine is dangerous and against the law. Store at room temperature between 20 and 25 degrees C (68 and 77 degrees F). Keep container tightly closed. Protect from light. This medicine may cause accidental overdose and if it is taken by other adults, children, or pets. Flush any unused medicine down the toilet to reduce the chance of harm. Do not use the medicine after the expiration date. What should I tell my health care provider before I take this medicine? They need to know if you have any of these conditions: brain tumor Crohn's disease, inflammatory bowel disease, or ulcerative colitis drink more than 3 alcohol containing drinks per day drug abuse or addiction head injury heart or circulation problems kidney disease or problems going to the bathroom liver disease lung disease, asthma, or breathing problems an unusual or allergic reaction to acetaminophen, oxycodone, other opioid analgesics, other medicines, foods, dyes, or preservatives or trying to get breast-feeding What should I watch for while using this medicine? Tell your doctor or health career developer if your pain does not go away, if it gets worse, or if you have new or a different type of pain. You may develop tolerance to the medicine. Tolerance means that you will need a higher dose of the medication for pain relief. Tolerance is normal and is expected if you take this medicine for a long time. Do not suddenly stop taking your medicine because you may develop a severe reaction. Your body becomes used to the medicine. This does NOT mean you are addicted. Addiction is a behavior related to getting and using a drug for a non-medical reason. If you have pain, you have a medical reason to take pain medicine. Your doctor will tell you how much medicine to take. If your doctor wants you to stop the medicine, the dose will be slowly lowered over time to avoid any side effects. You may get drowsy or dizzy. Do not drive, use machinery, or do anything that needs mental alertness until you know how this medicine affects you. Do not stand or sit up quickly, especially if you are an older patient. This reduces the risk of dizzy or fainting spells. Alcohol may interfere with the effect of this medicine. Avoid alcoholic drinks. There are different types of narcotic medicines (opiates) for pain. If you take more than one type at the same time, you may have more side effects. Give your health care provider a list of all medicines you use. Your doctor will tell you how much medicine to take. Do not take more medicine than directed. Call emergency for help if you have problems breathing. The medicine will cause constipation. Try to have a bowel movement at least every 2 to 3 days. If you do not have a bowel movement for 3 days, call your doctor or health career developer. Do not take Tylenol (acetaminophen) or medicines that have acetaminophen with this medicine. Too much acetaminophen can be very dangerous. Many nonprescription medicines contain acetaminophen. Always read the labels carefully to avoid taking more acetaminophen. You have been given the following additional information: Oxycodone Hydrochloride, Acetaminophen Oral tablet You may walk and bear weight as tolerated. (Electronically signed by Nik Uribe MD 10/13/2016 20:42)
--- NOTE | 2016-10-13 20:42 | ED MED RECONCILIATION SUMMARY ---
Patient: RAHEL PERRY Medication Reconciliation Report [facility] VisitID: [id number] [address] [place] [address] 26y, F Registration Date/Time: 10/12/2016 Weight: 67.1 kg Height/Length: 66 in. BMI: 23.9 ALLERGIES: No Known Drug Allergy The patient's Home Medications are listed below: NONE. The source(s) of the original Home Medication information: patient The following Medications were given to the patient in the Emergency Department: None. The following Medications were prescribed to the patient: Oxycodone/APAP 5 mg/325 mg: take 1-2 tablets orally every 4 hours as needed for pain. Dispense fifteen (15). No refill. -- Nik Uribe MD
--- NOTE | 2016-10-13 20:42 | ED MAR SUMMARY ---
..... Medication Administration Record [facility] [address], [place] [id number] Patient: RAHEL PERYR Visit ID: [id number] 26y, F Weight: 67.1 kg Height/Length: 66 in BMI: 23.9 ALLERGIES: No Known Drug Allergy
--- NOTE | 2016-10-13 20:42 | ED DISCHARGE INSTRUCTIONS ---
Patient: RAHEL PERRY General Instructions [facility] VisitID: [id number] [place] [address] 26y, F Registration Date/Time: 10/12/2016 Hip dysplasia with progressive pain. INSTRUCTIONS You may walk and bear weight as tolerated. Warnings: Further evaluation is necessary. GENERAL WARNINGS: Return or contact your physician immediately if your condition worsens or changes unexpectedly, if not improving as expected, or if other problems arise. Prescription Medications: Oxycodone/APAP 5 mg/325 mg: take 1-2 tablets orally every 4 hours as needed for pain. Dispense fifteen (15). No refill. Follow-up: Follow up with your doctor in two days. Call for the next available appointment. Understanding of the discharge instructions verbalized by patient. ADDITIONAL INFORMATION Oxycodone Hydrochloride, Acetaminophen Oral tablet What is this medicine? ACETAMINOPHEN; OXYCODONE (a set a FUNMILAYO carine fen; ox i KOE done) is a pain reliever. It is used to treat mild to moderate pain. How should I use this medicine? Take this medicine by mouth with a full glass of water. Follow the directions on the prescription label. Take your medicine at regular intervals. Do not take your medicine more often than directed. Talk to your climate change risk assessor regarding the use of this medicine in children. Special care may be needed. Patients over 65 years old may have a stronger reaction and need a smaller dose. What side effects may I notice from receiving this medicine? Side effects that you should report to your doctor or health child care aide as soon as possible: allergic reactions like skin rash, itching or hives, swelling of the face, lips, or tongue breathing difficulties, wheezing confusion light headedness or fainting spells severe stomach pain yellowing of the skin or the whites of the eyes Side effects that usually do not require medical attention (report to your doctor or health child care aide if they continue or are bothersome): dizziness drowsiness nausea vomiting What may interact with this medicine? alcohol antihistamines barbiturates like amobarbital, butalbital, butabarbital, methohexital, pentobarbital, phenobarbital, thiopental, and secobarbital benztropine drugs for bladder problems like solifenacin, trospium, oxybutynin, tolterodine, hyoscyamine, and methscopolamine drugs for breathing problems like ipratropium and tiotropium drugs for certain stomach or intestine problems like propantheline, homatropine methylbromide, glycopyrrolate, atropine, belladonna, and dicyclomine general anesthetics like etomidate, ketamine, nitrous oxide, propofol, desflurane, enflurane, halothane, isoflurane, and sevoflurane medicines for depression, anxiety, or psychotic disturbances medicines for sleep muscle relaxants naltrexone narcotic medicines (opiates) for pain phenothiazines like perphenazine, thioridazine, chlorpromazine, mesoridazine, fluphenazine, prochlorperazine, promazine, and trifluoperazine scopolamine tramadol trihexyphenidyl What if I miss a dose? If you miss a dose, take it as soon as you can. If it is almost time for your next dose, take only that dose. Do not take double or extra doses. Where should I keep my medicine? Keep out of the reach of children. This medicine can be abused. Keep your medicine in a safe place to protect it from theft. Do not share this medicine with anyone. Selling or giving away this medicine is dangerous and against the law. Store at room temperature between 20 and 25 degrees C (68 and 77 degrees F). Keep container tightly closed. Protect from light. This medicine may cause accidental overdose and if it is taken by other adults, children, or pets. Flush any unused medicine down the toilet to reduce the chance of harm. Do not use the medicine after the expiration date. What should I tell my health care provider before I take this medicine? They need to know if you have any of these conditions: brain tumor Crohn's disease, inflammatory bowel disease, or ulcerative colitis drink more than 3 alcohol containing drinks per day drug abuse or addiction head injury heart or circulation problems kidney disease or problems going to the bathroom liver disease lung disease, asthma, or breathing problems an unusual or allergic reaction to acetaminophen, oxycodone, other opioid analgesics, other medicines, foods, dyes, or preservatives or trying to get breast-feeding What should I watch for while using this medicine? Tell your doctor or health child care aide if your pain does not go away, if it gets worse, or if you have new or a different type of pain. You may develop tolerance to the medicine. Tolerance means that you will need a higher dose of the medication for pain relief. Tolerance is normal and is expected if you take this medicine for a long time. Do not suddenly stop taking your medicine because you may develop a severe reaction. Your body becomes used to the medicine. This does NOT mean you are addicted. Addiction is a behavior related to getting and using a drug for a non-medical reason. If you have pain, you have a medical reason to take pain medicine. Your doctor will tell you how much medicine to take. If your doctor wants you to stop the medicine, the dose will be slowly lowered over time to avoid any side effects. You may get drowsy or dizzy. Do not drive, use machinery, or do anything that needs mental alertness until you know how this medicine affects you. Do not stand or sit up quickly, especially if you are an older patient. This reduces the risk of dizzy or fainting spells. Alcohol may interfere with the effect of this medicine. Avoid alcoholic drinks. There are different types of narcotic medicines (opiates) for pain. If you take more than one type at the same time, you may have more side effects. Give your health care provider a list of all medicines you use. Your doctor will tell you how much medicine to take. Do not take more medicine than directed. Call emergency for help if you have problems breathing. The medicine will cause constipation. Try to have a bowel movement at least every 2 to 3 days. If you do not have a bowel movement for 3 days, call your doctor or health child care aide. Do not take Tylenol (acetaminophen) or medicines that have acetaminophen with this medicine. Too much acetaminophen can be very dangerous. Many nonprescription medicines contain acetaminophen. Always read the labels carefully to avoid taking more acetaminophen. You have been given the following additional information: Oxycodone Hydrochloride, Acetaminophen Oral tablet You may walk and bear weight as tolerated. (Electronically signed by Nik Uribe MD 10/13/2016 20:42)
--- NOTE | 2016-10-13 20:42 | ED MED RECONCILIATION SUMMARY ---
Patient: RAHEL PERRY Medication Reconciliation Report [facility] VisitID: [id number] [address] [place] [address] 26y, F Registration Date/Time: 10/12/2016 Weight: 67.1 kg Height/Length: 66 in. BMI: 23.9 ALLERGIES: No Known Drug Allergy The patient's Home Medications are listed below: NONE. The source(s) of the original Home Medication information: patient The following Medications were given to the patient in the Emergency Department: None. The following Medications were prescribed to the patient: Oxycodone/APAP 5 mg/325 mg: take 1-2 tablets orally every 4 hours as needed for pain. Dispense fifteen (15). No refill. -- Nik Uribe MD
== END 2016-10-12 21:35 | disposition home or self-care (01) ==
LOC: ED SRH 19:24
DX: Q65.89 Other specified congenital deformities of hip (principal); M25.552 Pain in left hip; Z72.0 Tobacco use